=== PATIENT | female | born 1995 | race Caucasian/White ===

== ENCOUNTER 2024-02-28 13:54 | Inpatient (IN) ==
--- NOTE | 2024-02-28 14:31 | Emergency Department Note ---
Impression & Plan Hyperbilirubinemia, Elevated lipase, Nausea & vomiting ED Provider Note NAME: MANJULA BELLO AGE: 28 SEX: F : 1995 ARRIVES VIA: Walk-In INFORMANT: Patient, mother ED PROVIDER(S): Kirill Winter MD CHIEF COMPLAINT: Nausea vomiting MEDICAL DECISION MAKING: Patient presents due to concern for nausea vomiting and concern for jaundice. IV was established and blood work is obtained along with right upper quadrant ultrasound. Patient was ordered IV fluids and IV Zofran. The patient did have an acute hepatitis panel ordered as the patient does have a bilirubin of 6.7. White count of 12. Patient does have elevated lipase at 2300. Urinalysis shows possible infection and she is positive for nitrites and leuks but negative for whites and bacteria. No reported urinary symptoms will defer treatment at this time. Tylenol and alcohol are negative. Given the patient's hyperbilirubinemia I did add a direct bilirubin as well. This was 4.3. Right upper quadrant ultrasound does not show any evidence of acute cholecystitis. CBD is normal in size 0.4 cm. No evidence of cholecystitis. No intra or extrahepatic biliary ductal dilatation. Given these findings I did speak with the on-call call center consultant Dr. Kenyon who recommended an MRCP but does not recommend transfer at this time. He did recommend adding an GEGE. I did speak the on-call hospitalist Dr. Larry and the patient was admitted to the medicine service. Of note the patient was feeling as though his blood sugar was low was noted to be 60 and the patient was ordered half an amp of D50 which she received and a subsequent BSG was obtained. Repeat was 117. Discussion w/ other healthcare providers: Dr. Esquivel gastroenterology Dr. Larry inpatient medicine service Prior /Outside records reviewed: None Differential diagnosis: Biliary obstruction, hepatitis, gastroenteritis, food borne illness, infection, appendicitis, diverticulitis, inflammatory bowel disease, obstruction among others were considered. Diagnostics, as interpreted by me: ECG: None Cardiac monitoring: An order was placed for continuous cardiac monitoring. The monitor shows a rate of 98 with sinus rhythm. Patient was placed on pulse oximetry Medical decision rules: None Imaging studies: I informally interpreted the patient's right upper quadrant ultrasound does show gallstones with formal report to follow. HPI: Patient presents due to concern for nausea vomiting and concern for jaundice. The patient reports that she began vomiting Thursday and has not been able to keep anything down. The patient states that she was trying to push fluids but even after fluids amount of vomiting about 30 minutes later. Patient states that she did not eat anything today but did try to drink and vomited. Patient denies any significant abdominal pain but does complain of an overall discomfort. The patient states that she did have what she thought was epigastric discomfort and pain on and states that this is not necessarily atypical for her. 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 Patient states that she is a type I diabetic and does follow both with endocrine and nephrology for stage II chronic kidney disease. Patient states that she has seen all of these providers in the last several months and believes that she had an endoscopy this year that was unremarkable and that she gets them yearly for surveillance. Patient denies any alcohol use. The patient denies any recent travel or illness. The patient denies any diarrhea. The patient has not had a bowel movement since which is atypical for her. Patient states that she has been passing gas. Prior history of a but no other abdominal surgeries no prior history of bowel obstruction. PAST MEDICAL HISTORY: Type 1 diabetes, CKD stage II, Padilla's PAST SURGICAL HISTORY: Endoscopy SOCIAL HISTORY: Denies alcohol tobacco or drug use. Speaks [place]an. HOME MEDICATIONS: See Below ALLERGIES: See Below VITALS: See Below PHYSICAL EXAMINATION: GENERAL: NAD, non-toxic. EYE EXAM: Scleral icterus bilaterally. PERRL, no anisocoria and EOM's grossly intact w/o pain. OROPHARYNX: Moist mucus membranes, grossly normal dentition. NECK: Trachea midline, no stridor. Supple, no nuchal rigidity, no adenopathy, non-tender. No signs of meningismus. FROM of the neck with good chin to chest and neck extension. LUNGS: Clear to auscultation. Normal chest wall mechanics. HEART: NSR, no MRG. ABDOMEN: Abdomen soft, non-tender, no masses, no rebound or guarding. BACK: No CVA TTP. SKIN: No rashes and no bruising. UPPER EXTREMITIES: Upper extremities are grossly normal. LOWER EXTREMITIES: Grossly normal, no edema. NEURO EXAM: A&O x3, cranial nerves II-XII grossly intact, normal speech, moves all 4 extremities. Past Med/Surg History Problem List (Updated 02/28/24 @ 18:34 by Kirill Winter MD) Nausea & vomiting (Acute) Elevated lipase (Acute) Hyperbilirubinemia (Acute) Social History Smoking Status: Never smoker Preferred Language: [place]an Feels Safe at Home: Yes Allergies Allergies Allergy/AdvReac Type Severity Reaction Status Date / Time No Known Allergies Allergy Unverified 02/28/24 17:28 Home Meds Home Medications Medication Instructions Recorded Confirmed ascorbic acid (vitamin C) 1,000 mg 1 g PO DAILY 02/28/24 02/28/24 tablet (Vitamin C) cholecalciferol (vitamin D3) 25 50 mcg PO DAILY 02/28/24 02/28/24 mcg (1,000 unit) tablet (Vitamin D3) insulin aspart U-100 100 unit/mL 150 unit continuous subcutaneous 02/28/24 02/28/24 subcutaneous solution (Novolog infusion UD U-100 Insulin aspart) insulin glargine 100 unit/mL (3 30 unit subcut UD PRN PUMP FAILURE 02/28/24 02/28/24 mL) subcutaneous pen (Lantus Solostar U-100 Insulin) levothyroxine 112 mcg tablet See Rx Instructions .Route .COMPLEX 02/28/24 02/28/24 losartan 50 mg tablet 50 mg PO QAM 02/28/24 02/28/24 metformin 500 mg tablet,extended 1,000 mg PO QAM 02/28/24 02/28/24 release 24 hr omeprazole 40 mg capsule,delayed 40 mg PO DAILY 02/28/24 02/28/24 release semaglutide (weight loss) 2.4 2.4 mg subcut WK 02/28/24 02/28/24 mg/0.75 mL subcutaneous pen injector (Wegovy) Results & Data (ED) Vital Signs Vital Signs - 24 hr 02/28/24 13:55 02/28/24 13:57 02/28/24 15:38 Temperature 37.0 C Temperature Source Temporal Artery Scan Pulse Rate 101 H 89 Pulse Rate [Right Finger] 104 H Pulse Rhythm Regular Pulse Strength Normal Respiratory Rate 18 20 Respiratory Effort / Characteristics Non-Labored Spontaneous Non-Labored Spontaneous Respiratory Depth Normal Respiratory Pattern Regular Blood Pressure 141/87 H Blood Pressure [Left Arm] 141/85 H Blood Pressure Mean 105 Blood Pressure Mean [Left Arm] 103 Blood Pressure Position Sitting Blood Pressure Position [Left Arm] Lying Pulse Oximetry 100 97 Oxygen Delivery Method Room Air Room Air Sepsis Recent Fever Within 48 Hours No Sepsis New/Unexplained Change in Mental Status No Sepsis Action Taken by Nursing No Action Required 02/28/24 15:55 02/28/24 17:00 Temperature Temperature Source Pulse Rate Pulse Rate [Right Finger] 87 75 Pulse Rhythm Pulse Strength Respiratory Rate 18 18 Respiratory Effort / Characteristics Non-Labored Spontaneous Non-Labored Spontaneous Respiratory Depth Respiratory Pattern Blood Pressure Blood Pressure [Left Arm] 141/85 H 138/81 Blood Pressure Mean Blood Pressure Mean [Left Arm] 103 100 Blood Pressure Position Blood Pressure Position [Left Arm] Lying Lying Pulse Oximetry 99 98 Oxygen Delivery Method Room Air Room Air Sepsis Recent Fever Within 48 Hours Sepsis New/Unexplained Change in Mental Status Sepsis Action Taken by Snf Medications Current Medication List: was personally reviewed by me Laboratory Data Attestation: I reviewed the patient's lab results. 02/28/24 14:07 02/28/24 14:07 Lab Results 02/28/24 02/28/24 02/28/24 Range/Units 14:07 14:19 15:02 WBC 12.53 H (4.8-10.8) K/ul RBC 4.92 (4.20-5.40) M/uL Hgb 13.9 (12.0-16.0) g/dl Hct 42.8 (37.0-47.0) % MCV 87.0 (80.0-100.0) fL MCH 28.3 (25.0-34.0) pg MCHC 32.5 (32.0-36.0) g/dL RDW Std Deviation 41.8 (36.4-46.3) fL RDW Coeff of Omid 13.1 (11.5-14.5) % Plt Count 517 H (130-400) K/uL MPV 9.1 L (9.4-12.4) fL Immature Gran % (Auto) 0.3 % Neut % (Auto) 79.8 % Lymph % (Auto) 11.9 % Coffey % (Auto) 6.7 % Eos % (Auto) 0.9 % Baso % (Auto) 0.4 % Neut # (Auto) 10.00 H (1.40-6.50) K/uL Lymph # (Auto) 1.49 (1.20-3.40) K/uL Coffey # (Auto) 0.84 H (0.11-0.59) K/uL Eos # (Auto) 0.11 (0.00-0.50) K/uL Baso # (Auto) 0.05 (0.00-0.20) K/uL Immature Gran # (Auto) 0.04 (0.01-0.20) K/uL Sodium 136 (136-145) mmol/L Potassium 3.8 (3.5-5.1) mmol/L Chloride 96 L (98-107) mmol/L Carbon Dioxide 28 (21-32) mmol/L Anion Gap 12 H (3-11) BUN 18 (6-23) mg/dl Creatinine 1.10 (0.6-1.2) mg/dl Est Cr Clr Drug Dosing 78.9 ml/min Est GFR ( Amer) 79.1 ml/min Est GFR (Non-Af Amer) 68.3 ml/min BUN/Creatinine Ratio 16.4 (10-20) Glucose 133 H (70-99(Fasting)) mg/dl POC Glucose (70-99) mg/dl Calcium 9.9 (8.6-10.3) mg/dl Total Bilirubin 6.7 H (0.2-1.0) mg/dl Direct Bilirubin 4.3 H (0-0.2) mg/dl AST 141 H (13-39) U/L ALT 642 H (7-52) U/L Alkaline Phosphatase 275 H (34-104) U/L Total Protein 8.4 H (6.0-8.3) gm/dl Albumin 4.5 (3.4-5.0) gm/dl Globulin 3.9 (2.5-4.0) gm/dl Albumin/Globulin Ratio 1.2 (0.9-2) Lipase 2318 H (11-82) U/L HCG, Qual Negative (Negative) Urine Color Dark Yellow Urine Appearance Cloudy A (Clear) Urine pH 5.0 (4.5-7.5) Ur Specific [place] 1.027 (1.000-1.030) Urine Protein 1+ H (Negative) Urine Glucose (UA) Negative (Negative) Urine Ketones 1+ H (Negative) Urine Blood Negative (Negative) Urine Nitrite Positive A (Negative) Urine Bilirubin 3+ H (Negative) Urine Urobilinogen Negative (Negative) Ur Leukocyte Esterase 1+ H (Negative) Urine WBC (Auto) 0-5 (0-5) /hpf Urine RBC (Auto) 6-10 H (0-2) /hpf U Hyaline Cast (Auto) 6-10 H (0-2) /lpf U Epithel Cells (Auto) 6-10 H (0-2) /hpf Urine Bacteria (Auto) None Seen (None Seen) Acetaminophen < 3 L (10-30) ug/ml Ethyl Alcohol mg/dL < 10.0 (<10.0) mg/dl 02/28/24 02/28/24 Range/Units 16:31 17:05 WBC (4.8-10.8) K/ul RBC (4.20-5.40) M/uL Hgb (12.0-16.0) g/dl Hct (37.0-47.0) % MCV (80.0-100.0) fL MCH (25.0-34.0) pg MCHC (32.0-36.0) g/dL RDW Std Deviation (36.4-46.3) fL RDW Coeff of Omid (11.5-14.5) % Plt Count (130-400) K/uL MPV (9.4-12.4) fL Immature Gran % (Auto) % Neut % (Auto) % Lymph % (Auto) % Coffey % (Auto) % Eos % (Auto) % Baso % (Auto) % Neut # (Auto) (1.40-6.50) K/uL Lymph # (Auto) (1.20-3.40) K/uL Coffey # (Auto) (0.11-0.59) K/uL Eos # (Auto) (0.00-0.50) K/uL Baso # (Auto) (0.00-0.20) K/uL Immature Gran # (Auto) (0.01-0.20) K/uL Sodium (136-145) mmol/L Potassium (3.5-5.1) mmol/L Chloride (98-107) mmol/L Carbon Dioxide (21-32) mmol/L Anion Gap (3-11) BUN (6-23) mg/dl Creatinine (0.6-1.2) mg/dl Est Cr Clr Drug Dosing ml/min Est GFR ( Amer) ml/min Est GFR (Non-Af Amer) ml/min BUN/Creatinine Ratio (10-20) Glucose (70-99(Fasting)) mg/dl POC Glucose 62 L* 117 H (70-99) mg/dl Calcium (8.6-10.3) mg/dl Total Bilirubin (0.2-1.0) mg/dl Direct Bilirubin (0-0.2) mg/dl AST (13-39) U/L ALT (7-52) U/L Alkaline Phosphatase (34-104) U/L Total Protein (6.0-8.3) gm/dl Albumin (3.4-5.0) gm/dl Globulin (2.5-4.0) gm/dl Albumin/Globulin Ratio (0.9-2) Lipase (11-82) U/L HCG, Qual (Negative) Urine Color Urine Appearance (Clear) Urine pH (4.5-7.5) Ur Specific [place] (1.000-1.030) Urine Protein (Negative) Urine Glucose (UA) (Negative) Urine Ketones (Negative) Urine Blood (Negative) Urine Nitrite (Negative) Urine Bilirubin (Negative) Urine Urobilinogen (Negative) Ur Leukocyte Esterase (Negative) Urine WBC (Auto) (0-5) /hpf Urine RBC (Auto) (0-2) /hpf U Hyaline Cast (Auto) (0-2) /lpf U Epithel Cells (Auto) (0-2) /hpf Urine Bacteria (Auto) (None Seen) Acetaminophen (10-30) ug/ml Ethyl Alcohol mg/dL (<10.0) mg/dl Administered Medications Discontinued Medications Dextrose (Dextrose 50% 50 Ml Syringe) 25 ml IV NOW ONE Stop: 02/28/24 16:54 Last Admin: 02/28/24 16:56 Dose: 25 ml Documented By: CHERELLE Sodium Chloride (Nss) 1,000 mls @ 999 mls/hr IV .Q1H1M ONE Stop: 02/28/24 15:45 Last Infusion: 02/28/24 17:10 Dose: Infused Documented By: Admin: 02/28/24 14:56 Dose: 999 mls/hr Documented By: CHERELLE Ondansetron HCl (Ondansetron Inj 2 Mg/Ml 2 Ml Vial) 4 mg IV NOW STA Stop: 02/28/24 14:46 Last Admin: 02/28/24 14:52 Dose: 4 mg Documented By: CHERELLE Imaging Data Radiologist's Impression: Gallbladder Ultrasound 02/28/24 14:45 ULTRASOUND RIGHT UPPER QUADRANT ABDOMEN CLINICAL HISTORY: Vomiting. Elevated bilirubin. COMPARISON STUDY: Abdominal radiograph dated 02/25/2024 TECHNIQUE: Real-time, grayscale, and color flow sonography of the right upper quadrant of the abdomen was performed. Images are reviewed in the transverse and longitudinal planes. FINDINGS: Liver: The liver is normal in size and echotexture. There is no intrahepatic biliary ductal dilatation. The main portal vein is patent. Gallbladder: The gallbladder is mildly distended and contains layering gallstones. There is no significant gallbladder wall thickening or pericholecystic fluid. A sonographic Bravo's sign is reportedly absent. The common bile duct measures up to 0.4 cm in diameter. Pancreas: Visualized portions of the pancreatic head and body are normal in appearance. The splenic vein is patent. Right kidney: Survey images of the right kidney demonstrate normal size and echotexture. There is no hydronephrosis. Ascites: None. IMPRESSION: 1. Cholelithiasis without sonographic evidence of acute cholecystitis. If there is strong clinical concern for acute cholecystitis a nuclear hepatobiliary scan could be considered. 2. There is no intra or extrahepatic biliary ductal dilatation. ACT 112: Negative or not required by law. Electronically signed by: Shiva Gutierrez M.D. 02/28/2024 4:22 PM KUB X-Ray 02/28/24 14:49 KUB CLINICAL HISTORY: Constipation. FINDINGS: 2 AP supine abdominal radiographs are obtained. No prior studies are available for comparison at the time of dictation. There is a nonobstructed abdominal bowel gas pattern. Mild to moderate fecal retention is seen in the right colon. No evidence of intraperitoneal free air is identified on these supine images. There are no abnormal abdominal calcifications. The bony structures appear intact. IMPRESSION: No acute abnormality is identified. Electronically signed by: Shiva Gutierrez M.D. 02/28/2024 4:10 PM Discharge Plan Visit Data Chief Complaint: Illness Stated Complaint: JAUNDICED, VOMITING, NAUSEA, CONSTIPATION ED Provider: Kirill Winter Discharge Problem: Hyperbilirubinemia, Elevated lipase, Nausea & vomiting Forms Stand Alone Forms: My [facility] [place] [facility] Prescriptions Prescriptions: No Action losartan 50 mg tablet 50 mg PO QAM omeprazole 40 mg capsule,delayed release(DR/EC) 40 mg PO DAILY insulin aspart U-100 [Novolog U-100 Insulin aspart] 100 unit/mL solution 150 unit continuous subcutaneous infusion UD MDD 150 UNITS PER DAY Rx Instructions: VIA INSULIN PUMP metformin 500 mg tablet extended release 24 hr 1,000 mg PO QAM Wegovy 2.4 mg/0.75 mL pen injector 2.4 mg SUBCUT WK Rx Instructions: TAKE ON TUESDAYS insulin glargine [Lantus Solostar U-100 Insulin] 100 unit/mL (3 mL) insulin pen 30 unit SUBCUT UD PRN (Reason: PUMP FAILURE) Rx Instructions: INJECT 30 UNITS SUB-Q WITH BREAKFAST AND DINNER..USE IN CASE OF PUMP FAILURE..EACH PEN EXPIRES 28 DAYS AFTER USE levothyroxine 112 mcg tablet See Rx Instructions .ROUTE .COMPLEX Rx Instructions: TAKE 1 TABLET BY MOUTH 6 DAYS A WEEK AND 2 TABLETS ON DAY 7 ascorbic acid (vitamin C) [Vitamin C] 1,000 mg Tablet 1 g PO DAILY cholecalciferol (vitamin D3) [Vitamin D3] 25 mcg (1,000 unit) Tablet 50 mcg PO DAILY Referrals Referrals: PCP,NO [Physician] - Discharge Problem: Nausea & vomiting Qualifiers: Vomiting type: unspecified Qualified Code(s): R11.2 - Nausea with vomiting, unspecified
[2024-02-28 14:35] LABS: Basophils # (auto) 0.05 K/uL (0.00-0.20); Basophils % (auto) 0.4 %; Eosinophils # (auto) 0.11 K/uL (0.00-0.50); Eosinophils % (auto) 0.9 %; Hematocrit (blood only) 42.8 % (37.0-47.0); Hemoglobin 13.9 g/dl (12.0-16.0); Immature Granulocytes # (auto) 0.04 K/uL (0.01-0.20); Immature Granulocytes % (auto) 0.3 %; Lymphocytes # (auto) 1.49 K/uL (1.20-3.40); Lymphocytes % (auto) 11.9 %; Mean Corpuscular Hemoglobin 28.3 pg (25.0-34.0); Mean Corpuscular Hgb Conc 32.5 g/dL (32.0-36.0); Mean Platelet Volume 9.1 fL (9.4-12.4); Monocytes # (auto) 0.84 K/uL (0.11-0.59); Monocytes % (auto) 6.7 %; Neutrophils % (auto) 79.8 %; Platelet Count 517 K/uL (130-400); RDW Coefficient of Variation 13.1 % (11.5-14.5); RDW Standard Deviation 41.8 fL (36.4-46.3); Red Blood Count 4.92 M/uL (4.20-5.40); White Blood Count 12.53 K/ul (4.8-10.8)
[2024-02-28 14:38] LABS: BUN Creatinine Ratio 16.4 (10-20); Calcium 9.9 mg/dl (8.6-10.3); Creatinine Clr Calc Pharmacy 78.9 ml/min; Est GFR (African American) 79.1 ml/min; Est GFR (Non-African American) 68.3 ml/min; Potassium 3.8 mmol/L (3.5-5.1)
[2024-02-28 14:39] LABS: Albumin Globulin Ratio 1.2 (0.9-2); Albumin Level 4.5 gm/dl (3.4-5.0); Bilirubin,Total 6.7 mg/dl (0.2-1.0); Globulin 3.9 gm/dl (2.5-4.0); Total Protein 8.4 gm/dl (6.0-8.3)
[2024-02-28 14:46] LABS: Pregnancy Test, Serum Negative (Negative)
[2024-02-28 14:48] LABS: Appearance Urine Cloudy (Clear); Bacteria Urine Automated None Seen (None Seen); Bilirubin Urine 3+ (Negative); Blood Urine Negative (Negative); Color Urine Dark Yellow; Glucose Urine UA Negative (Negative); Ketones Urine 1+ (Negative); Leukocyte Esterase Urine 1+ (Negative); Nitrite Urine Positive (Negative); Protein Urine 1+ (Negative); Specific Gravity Urine 1.027 (1.000-1.030); Urobilinogen Urine Negative (Negative); WBC Urine Automated 0-5 /hpf (0-5)
[2024-02-28] MEDS: ONDANSETRON INJ 2 MG/ML 2 ML VIAL IV STA (14:52)
[2024-02-28] MEDS: SODIUM CHLORIDE 0.9% 1,000 ML IV ONE (14:56)
[2024-02-28 15:32] LABS: Bilirubin Direct 4.3 mg/dl (0-0.2)
--- NOTE | 2024-02-28 16:12 | XRay Report ---
KUB CLINICAL HISTORY: Constipation. FINDINGS: 2 AP supine abdominal radiographs are obtained. No prior studies are available for comparis on at the time of dictation. There is a nonobstructed abdominal bowel gas pattern. Mild to moderate f ecal retention is seen in the right colon. No evidence of intraperitoneal free air is identified on t hese supine images. There are no abnormal abdominal calcifications. The bony structures appear intact . IMPRESSION: No acute abnormality is identified. Electronically signed by: Shiva Gutierrez M.D. 02/28/2024 4:10 PM
--- NOTE | 2024-02-28 16:23 | Ultrasound Report ---
ULTRASOUND RIGHT UPPER QUADRANT ABDOMEN CLINICAL HISTORY: Vomiting. Elevated bilirubin. COMPARISON STUDY: Abdominal radiograph dated 02/25/2024 TECHNIQUE: Real-time, grayscale, and color flow sonography of the right upper quadrant of the abdomen was performed. Images are reviewed in the transverse and longitudinal planes. FINDINGS: Liver: The liver is normal in size and echotexture. There is no intrahepatic biliary ductal dilatatio n. The main portal vein is patent. Gallbladder: The gallbladder is mildly distended and contains layering gallstones. There is no signif icant gallbladder wall thickening or pericholecystic fluid. A sonographic Bravo's sign is reportedly absent. The common bile duct measures up to 0.4 cm in diameter. Pancreas: Visualized portions of the pancreatic head and body are normal in appearance. The splenic v ein is patent. Right kidney: Survey images of the right kidney demonstrate normal size and echotexture. There is no hydronephrosis. Ascites: None. IMPRESSION: 1. Cholelithiasis without sonographic evidence of acute cholecystitis. If there is strong clinical co ncern for acute cholecystitis a nuclear hepatobiliary scan could be considered. 2. There is no intra or extrahepatic biliary ductal dilatation. ACT 112: Negative or not required by law. Electronically signed by: Shiva Gutierrez M.D. 02/28/2024 4:22 PM
[2024-02-28] MEDS: DEXTROSE 50% 50 ML SYRINGE IV ONE (16:56)
--- NOTE | 2024-02-28 18:27 | History & Physical Report ---
Date of Service February 28, 2024 Assessment & Plan (1) Hyperbilirubinemia: Plan: Suspected choledocholithiasis with passed stone Patient 3 weeks ago had some epigastric discomfort and light/K colored diarrhea which resolved. Subsequently with white/stefania colored stools with her last bowel movement, and then progressive nausea/vomiting and anorexia in the last 3 days Nausea/bloody nonbloody significantly worsened with attempted meals over the last 3 days Bilirubin 4.3, AST 141, ALT 642, lipase 2318 suggestive of obstructive biliary disease Gallbladder ultrasound with cholelithiasis, no evidence of acute cholecystitis, no intra or extrahepatic ductal dilation MRCP 1. Cholelithiasis without MRI evidence of acute cholecystitis. 2. Otherwise normal MRCP. There is no clear evidence of choledocholithiasis. Patient reports her pain actually improved earlier today after worsening this morning, she currently reports that she feels the best she has in several days and has a little of an appetite back. ?passed stone GI consulted. Recommended MRCP, GEGE, hepatitis panel in addition to above which are ordered and pending Surgery consulted - CMP daily No fever, no chills, no signs of acute cholecystitis on imaging, no left shift. Antibiotics deferred (2) Nausea & vomiting: Plan: - Zofran, D5LR IVFM (3) Type 1 diabetes mellitus: Plan: Longstanding history of type I DM which patient manages with a insulin pump and CGM Basal rate 2 units/h, CF 1-20, ratio 1:8 Patient strongly prefers to use her own pump as able. Will add BSG checks AC/at bedtime or every 4 hours while NPO and allow her to continue her room pump for now. Will transition if she is scheduled for surgery. If she has hypoglycemic or hyperglycemic episodes she is agreeable to switching to pharmacy controlled basal bolus. (4) BMI 38.0-38.9,adult: Plan: Wegovy held Plan DVT prophylaxis: Pharmacoprophylaxis held pending surgical evaluation, SCDs Diet: Clears until midnight, n.p.o. at midnight CODE STATUS: Full code Disposition: Medical surgical History of Present Illness Primary Care Provider: Chucho Patel DO Dg is a 28-year-old female with a past medical history of type 1 diabetes mellitus on insulin pump, hypothyroidism on Synthroid, hypertension on losartan, and BMI 38.5 on Wegovy who presents with a bilirubin of 6.7, obstructive appearing transaminitis, and abdominal discomfort concerning for choledocholithiasis. Patient presented with nausea/vomiting and jaundice KUB is without acute abnormality Right upper quadrant ultrasound shows cholelithiasis without evidence of acute cholecystitis. No intra or extrahepatic biliary ductal dilation was seen. Case was reviewed with the ER and GI who recommended medicine evaluation and MRCP. MRCP was obtained prior to admission and showed []. Thursday epigastric pain started on her way to work. Went to work, took a pepcid. Has a history of Baretts and GERD which felt similar Threw up, and with prior GI history usually feels better after vomiting but did not feel better this time Tried to eat later in the afternoon and had turkey and cheese, kept it down for an hour then pain dramatically worsened. +emesis again. No blood/melena. Continued to have pain throughout the evening and receeded to a strong discomfort but 'not unbearable pain, was tolerable.' Triedto eat dinner but couldnt and threw up. Didn't eat all day thursday, and then tried to have zuly eapple and again got nauseus, pain returned, and vomited an hour later again. Also had some pain in both sides yesterday evening. Pain in his low mid sternum and epigastrum. THis morning tried fluids but pain returned and after drinking just 12oz of liquids felt sick again and camr to the ER. NO bowel movements since last , normally has daily BM. Has not been eating in the last few days. BMs right before her symptoms started were white and stefania colored which is not normal for her. 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 Was put on immodium and sx resolved until her recent episode. No fevers, chills. Did have some sweats when her BSG dropped, is a T1 diabetic. Novolog insulin pump normally. Basal rate 2u/hour, CF 1:20, Ratio 1:8. PT strongly prefers to use her own pump if able. Is prescribed lantus as a backup but has not needed to use this and has not taken it. Patient has been on Wegovy for a little over 1 year. Seems to help her sugars a lot and feels she has had great success with this, and has not had side effects with this. No dysuria. Medical History: Reviewed Medications: Reviewed Surgical History: Reviewed Family history: Reviewed Allergies: Reviewed, NKDA Social History: REviewed. No tobacco/ETOH use. Code Status: Full Allergies Allergy/AdvReac Type Severity Reaction Status Date / Time ibuprofen [From Motrin] Allergy rash Verified 02/28/24 18:33 Home Medications Medication Instructions Recorded Confirmed Type ascorbic acid (vitamin C) 1,000 mg 1 g PO DAILY 02/28/24 02/28/24 History tablet (Vitamin C) cholecalciferol (vitamin D3) 25 50 mcg PO DAILY 02/28/24 02/28/24 History mcg (1,000 unit) tablet (Vitamin D3) insulin aspart U-100 100 unit/mL 150 unit continuous subcutaneous 02/28/24 02/28/24 History subcutaneous solution (Novolog infusion UD U-100 Insulin aspart) insulin glargine 100 unit/mL (3 30 unit subcut UD PRN PUMP FAILURE 02/28/24 02/28/24 History mL) subcutaneous pen (Lantus Solostar U-100 Insulin) levothyroxine 112 mcg tablet See Rx Instructions .Route .COMPLEX 02/28/24 02/28/24 History losartan 50 mg tablet 50 mg PO QAM 02/28/24 02/28/24 History metformin 500 mg tablet,extended 1,000 mg PO QAM 02/28/24 02/28/24 History release 24 hr omeprazole 40 mg capsule,delayed 40 mg PO DAILY 02/28/24 02/28/24 History release semaglutide (weight loss) 2.4 2.4 mg subcut WK 02/28/24 02/28/24 History mg/0.75 mL subcutaneous pen injector (Wegovy) Past Med/Surg History Problem List BMI 38.0-38.9,adult Type 1 diabetes mellitus Nausea & vomiting (Acute) Elevated lipase (Acute) Hyperbilirubinemia (Acute) Social History Smoking Status: Never smoker Preferred Language: Lithuanian Feels Safe at Home: Yes Physical Exam Physical Exam: General: A&Ox3. NAD. Cooperative. HEENT: Atraumatic, normocephalic. Pulm: CTAB A&P. -wheezes, -rales, -rhonchi. Symmetrical chest rise. No increased work of breathing. No respiratory distress. Cardiac: RRR, -mrg. Radial pulses intact and symmetrical. Abdominal: Mild nausea with epigastric palpation otherwise nontender, nondistended, soft. BS present. Results & Data Results & Data Vital Signs (Past 12 Hours) Vital Signs Temp Pulse Pulse Resp BP BP Pulse Ox 02/28/24 17:00 75 18 138/81 98 02/28/24 15:55 87 18 141/85 H 99 02/28/24 15:38 89 02/28/24 13:57 37.0 C 101 H 20 141/87 H 97 02/28/24 13:55 104 H 18 141/85 H 100 O2 Del Method 02/28/24 17:00 Room Air 02/28/24 15:55 Room Air 02/28/24 15:38 02/28/24 13:57 Room Air 02/28/24 13:55 Room Air PG Care Time/CCT Total # of Minutes Spent Total Time Spent with Patient: Total time spent is greater than 50% in coordination of care (as documented) at patient's floor/unit and/or counseling patient: Coding Level of Care Code 68878 INT INP/OBS CARE 3/75MIN Diagnoses Hyperbilirubinemia E80.6 Nausea & vomiting R11.2 Vomiting type: unspecified Type 1 diabetes mellitus E10.9 BMI 38.0-38.9,adult Z68.38 (2) Nausea & vomiting Vomiting type: unspecified Qualified Code(s): R11.2 - Nausea with vomiting, unspecified
[2024-02-28] MEDS: D5W AND LACTATED RINGERS 1,000 ML IV SCH (18:39)
[2024-02-28] MEDS ORDERED: MoRPHine SULFATE 2 MG/ML CARP IV PRN (19:09)
[2024-02-28] MEDS ORDERED: ACETAMINOPHEN 325 MG TAB PO PRN (19:09)
[2024-02-28] MEDS ORDERED: GLUCOSE 40% GEL 15 GM TUBE PO PRN (19:10)
[2024-02-28] MEDS ORDERED: GLUCOSE 10 TAB/TUBE PO PRN (19:10)
[2024-02-28] MEDS ORDERED: GLUCAGON FOR INJ 1 MG VIAL SQ PRN (19:10)
--- NOTE | 2024-02-28 19:25 | Magnetic Resonance Report ---
MRCP CLINICAL HISTORY: Vomiting. Elevated bilirubin. Jaundice. Cholelithiasis. COMPARISON STUDY: Abdominal radiographs and ultrasound performed earlier the same day 02/28/2024. TECHNIQUE: Abdominal MRCP was performed utilizing various T2-weighted sequences in the axial and caro nal planes. IV contrast was not administered for this examination. 3-D reformats were created and ass essed. Diffusion-weighted imaging was utilized. FINDINGS: The gallbladder is mildly distended and contains numerous small gallstones. There is no MRI evidence of acute cholecystitis. There is no intra or extrahepatic biliary ductal dilatation. The common bile duct measures up to 3 mm in diameter. No intraluminal filling defects are seen to indicate choledocho lithiasis. The pancreatic duct is normal in caliber. The unenhanced liver, spleen, pancreas, adrenal glands, and kidneys are grossly unremarkable. The abd ominal aorta is normal in course and caliber. No bowel obstruction is seen. There is no abdominal asc ites. No pleural effusion is identified. IMPRESSION: 1. Cholelithiasis without MRI evidence of acute cholecystitis. 2. Otherwise normal MRCP. There is no clear evidence of choledocholithiasis. Dictated: 02/28/2024 5:52 PM Transcribed: 02/28/2024 7:13 PM Leonarda [id number] ANDREIA_Fady [id number] Electronically signed by: Shiva Gutierrez M.D. 02/28/2024 7:23 PM
--- NOTE | 2024-02-28 19:27 | Surgery Consultation ---
<Statement entered by Jamal Masterson DO - 02/29/24 10:14> This case was discussed with the surgical PA and I agree with this plan Date of Consultation February 28, 2024 Assessment & Plan (1) Hyperbilirubinemia: Patient seen and evaluated in the ED, states her symptoms have resolved at this time. However she was found to have elvated Tbili of 6.7. She underwent MRCP to r/o choledocholithiasis which was found to be negative at this time. Recommend repeat LFTs in the morning to further evaluate. Patient may have clears and NPO at midnight Recommend IV anabiotic coverage Will plan for surgical intervention 02/28 for cholecystectomy. History of Present Illness Reason for Consultation: acute cholecystitis History of Present Illness Patient is a 28-year-old female who presented to the ED with concerns for ongoing nausea, vomiting and jaundice. Patient states that her symptoms started this past Thursday and since then have been persistent. Patient states that she has not been able to keep any food/liquids down since Thursday. She also complains of worsening epigastric abdominal pain that started last evening and states the pain does radiate into her right shoulder/flank region. 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 Patient states since receiving medication at the ED her symptoms have resolved. Upon workup she was found to have elevated WBC at 12.5 and elevated LFTs including a Tbili of 6.7. Imaging was consistent with cholelithiasis. Patient does have a surgical history of x1 in the past. She otherwise denies any CP, SOB, changes in urinary habits, fevers or chills. Allergies Allergy/AdvReac Type Severity Reaction Status Date / Time ibuprofen [From Motrin] Allergy rash Verified 02/28/24 18:33 Home Medications Medication Instructions Recorded Confirmed Type ascorbic acid (vitamin C) 1,000 mg 1 g PO DAILY 02/28/24 02/28/24 History tablet (Vitamin C) cholecalciferol (vitamin D3) 25 50 mcg PO DAILY 02/28/24 02/28/24 History mcg (1,000 unit) tablet (Vitamin D3) insulin aspart U-100 100 unit/mL 150 unit continuous subcutaneous 02/28/24 02/28/24 History subcutaneous solution (Novolog infusion UD U-100 Insulin aspart) insulin glargine 100 unit/mL (3 30 unit subcut UD PRN PUMP FAILURE 02/28/24 02/28/24 History mL) subcutaneous pen (Lantus Solostar U-100 Insulin) levothyroxine 112 mcg tablet See Rx Instructions .Route .COMPLEX 02/28/24 02/28/24 History losartan 50 mg tablet 50 mg PO QAM 02/28/24 02/28/24 History metformin 500 mg tablet,extended 1,000 mg PO QAM 02/28/24 02/28/24 History release 24 hr omeprazole 40 mg capsule,delayed 40 mg PO DAILY 02/28/24 02/28/24 History release semaglutide (weight loss) 2.4 2.4 mg subcut WK 02/28/24 02/28/24 History mg/0.75 mL subcutaneous pen injector (Wegovy) Patient History Social History Smoking Status: Never smoker Preferred Language: Syriac Feels Safe at Home: Yes Review of Systems Review of Systems: All systems reviewed & are unremarkable except as noted in HPI & below Physical Exam Constitutional: well developed; no acute distress Respiratory: normal respiratory effort, lungs clear to auscultation Cardiovascular: RRR, no murmur, no edema Gastrointestinal (Abdomen): Abdomen soft, nontender, -Bravo's sign. No rebound, rebound, or peritonitis Skin: no rashes, warm and dry Results & Data Vital Signs (Past 12 Hours) Vital Signs Temp Pulse Pulse Resp BP BP Pulse Ox 02/28/24 17:00 75 18 138/81 98 02/28/24 15:55 87 18 141/85 H 99 02/28/24 15:38 89 02/28/24 13:57 37.0 C 101 H 20 141/87 H 97 02/28/24 13:55 104 H 18 141/85 H 100 O2 Del Method 02/28/24 17:00 Room Air 02/28/24 15:55 Room Air 02/28/24 15:38 02/28/24 13:57 Room Air 02/28/24 13:55 Room Air Diagnostic Findings ULTRASOUND RIGHT UPPER QUADRANT ABDOMEN CLINICAL HISTORY: Vomiting. Elevated bilirubin. COMPARISON STUDY: Abdominal radiograph dated 02/25/2024 TECHNIQUE: Real-time, grayscale, and color flow sonography of the right upper quadrant of the abdomen was performed. Images are reviewed in the transverse and longitudinal planes. FINDINGS: Liver: The liver is normal in size and echotexture. There is no intrahepatic biliary ductal dilatation. The main portal vein is patent. Gallbladder: The gallbladder is mildly distended and contains layering gallstones. There is no significant gallbladder wall thickening or pericholecystic fluid. A sonographic Bravo's sign is reportedly absent. The common bile duct measures up to 0.4 cm in diameter. Pancreas: Visualized portions of the pancreatic head and body are normal in appearance. The splenic vein is patent. Right kidney: Survey images of the right kidney demonstrate normal size and echotexture. There is no hydronephrosis. Ascites: None. IMPRESSION: 1. Cholelithiasis without sonographic evidence of acute cholecystitis. If there is strong clinical concern for acute cholecystitis a nuclear hepatobiliary scan could be considered. 2. There is no intra or extrahepatic biliary ductal dilatation. MRCP CLINICAL HISTORY: Vomiting. Elevated bilirubin. Jaundice. Cholelithiasis. COMPARISON STUDY: Abdominal radiographs and ultrasound performed earlier the same day 02/28/2024. TECHNIQUE: Abdominal MRCP was performed utilizing various T2-weighted sequences in the axial and coronal planes. IV contrast was not administered for this examination. 3-D reformats were created and assessed. Diffusion-weighted imaging was utilized. FINDINGS: The gallbladder is mildly distended and contains numerous small gallstones. There is no MRI evidence of acute cholecystitis. There is no intra or extrahepatic biliary ductal dilatation. The common bile duct measures up to 3 mm in diameter. No intraluminal filling defects are seen to indicate choledocholithiasis. The pancreatic duct is normal in caliber. The unenhanced liver, spleen, pancreas, adrenal glands, and kidneys are grossly unremarkable. The abdominal aorta is normal in course and caliber. No bowel obstruction is seen. There is no abdominal ascites. No pleural effusion is identified. IMPRESSION: 1. Cholelithiasis without MRI evidence of acute cholecystitis. 2. Otherwise normal MRCP. There is no clear evidence of choledocholithiasis. Dictated: 02/28/2024 5:52 PM Transcribed: 02/28/2024 7:13 PM Leonarda [id number] ANDREIA_Fady [id number] PG Care Time/CCT Total # of Minutes Spent Total Time Spent with Patient: Total time spent is greater than 50% in coordination of care (as documented) at patient's floor/unit and/or counseling patient: Coding Level of Care Code 85797 IN/OBS CONSULT LVL 5,80M Diagnoses Hyperbilirubinemia E80.6
[2024-02-28] MEDS: 4.5GM X1 IV STA (21:52)
--- NOTE | 2024-02-28 22:35 | Gastrointestinal Consultation ---
Date of Consultation February 28, 2024 Assessment & Plan (1) Abnormal LFTs: The patient has abnormal LFTs we do not have any old records to compare but I suspect she has an underlying steatohepatitis also the patient has an acute episode of nausea vomiting accompanied by elevation of the bilirubin she had an MRCP which did not show any choledocholithiasis of note the unenhanced imaged also did not show any pancreatitis per se although she has a markedly elevated lipase her Tylenol negative was negative level was negative as was her alcohol level The etiology of the abnormal LFTs is uncertain she could have sphincter of Oddi dysfunction which could be causing these problems as she believes been having recurrent episodes of abdominal pain for the last year. It is unlikely that she had a stone as the MRCP showed the CBD to be 3 mm and there were no choledocholithiasis At present I would 1. Follow trend and follow LFTs 2. Check for acute hepatitis panel 3. Check for GEGE and anti-smooth muscle antibody 4. Check INR 5. IV fluids 6. Depending upon results may need sphincter of Oddi manometry in the future Thank you for allowing us to take part in the care of your patient we will continue to follow her with you History of Present Illness Reason for Consultation: Abnormal LFTs Requesting Physician: Rob Esquivel Attending Physician: Beverley Zmaan MD History of Present Illness A very pleasant 28-year-old female with a past medical history significant for t ype I diabetes mellitus on insulin pump, hypothyroidism on Synthroid, hypertension on losartan, and BMI 38.5 on Wegov. 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 but that there is treatment that was offered did not alleviate the symptoms approximately 4 on Fridays she states the pain got a lot worse and the pain continued instead of swelling lasting for a few hours it and intensified in severity then decreased and today she noticed that her eyes were turning yellow in light of that fact he decided to come to the hospital currently she states that the abdominal pain has more almost resolved she denies any dysphagia she has a reflux she states she has been having a lot of nausea and vomiting over these last 3 days but currently is feeling better the abdominal pain as mentioned is currently abated but had been constant for the last few days she previously had episodes of diarrhea but for the last 3 days she has not had any bowel movements but she has not been eating also she denies taking Tylenol or alcohol she also denies taking any nonsteroidals Allergies Allergy/AdvReac Type Severity Reaction Status Date / Time ibuprofen [From Motrin] Allergy rash Verified 02/28/24 18:33 Home Medications Medication Instructions Recorded Confirmed Type ascorbic acid (vitamin C) 1,000 mg 1 g PO DAILY 02/28/24 02/28/24 History tablet (Vitamin C) cholecalciferol (vitamin D3) 25 50 mcg PO DAILY 02/28/24 02/28/24 History mcg (1,000 unit) tablet (Vitamin D3) insulin aspart U-100 100 unit/mL 150 unit continuous subcutaneous 02/28/24 02/28/24 History subcutaneous solution (Novolog infusion UD U-100 Insulin aspart) insulin glargine 100 unit/mL (3 30 unit subcut UD PRN PUMP FAILURE 02/28/24 02/28/24 History mL) subcutaneous pen (Lantus Solostar U-100 Insulin) levothyroxine 112 mcg tablet See Rx Instructions .Route .COMPLEX 02/28/24 02/28/24 History losartan 50 mg tablet 50 mg PO QAM 02/28/24 02/28/24 History metformin 500 mg tablet,extended 1,000 mg PO QAM 02/28/24 02/28/24 History release 24 hr omeprazole 40 mg capsule,delayed 40 mg PO DAILY 02/28/24 02/28/24 History release semaglutide (weight loss) 2.4 2.4 mg subcut WK 02/28/24 02/28/24 History mg/0.75 mL subcutaneous pen injector (Wegovy) Patient History Social History Smoking Status: Never smoker Hx Alcohol Use: No Hx Substance Use: No Preferred Language: Divehi Communication Ability: Effective Wick Tender Required: No Beliefs That Will Affect Care: None Current Living Situation: Spouse Other Information That Helps Us Care for You: No Feels Safe at Home: Yes Safety Concerns: Feels Safe At This Time Assistive Devices: None Review of Systems Review of Systems: A 10 point review of systems was done Physical Exam Constitutional: Young female who appears comfortable Eyes: Mildly jaundiced Cardiovascular: S1 and S2 Gastrointestinal (Abdomen): Soft no tenderness or masses appreciated Results & Data Vital Signs (Past 12 Hours) Vital Signs Temp Pulse Pulse Resp BP BP Pulse Ox 02/28/24 20:22 76 19 122/64 100 02/28/24 19:38 77 18 122/64 100 02/28/24 17:00 75 18 138/81 98 02/28/24 15:55 87 18 141/85 H 99 02/28/24 15:38 89 02/28/24 13:57 37.0 C 101 H 20 141/87 H 97 02/28/24 13:55 104 H 18 141/85 H 100 O2 Del Method 02/28/24 20:22 Room Air 02/28/24 19:38 Room Air 02/28/24 17:00 Room Air 02/28/24 15:55 Room Air 02/28/24 15:38 02/28/24 13:57 Room Air 02/28/24 13:55 Room Air PG Care Time/CCT Total # of Minutes Spent Total Time Spent with Patient: Total time spent is greater than 50% in coordination of care (as documented) at patient's floor/unit and/or counseling patient: Coding Level of Care Code 80790 IN/OBS CONSULT LVL 2,35M Diagnoses Abnormal LFTs R79.89
[2024-02-28] MEDS ORDERED: POLYETHYLENE (MIRALAX) 17 GM PACK PO PRN (23:26)
[2024-02-29] MEDS: DEXTROSE 50% 50 ML SYRINGE IV PRN (03:02)
[2024-02-29] MEDS: PIPERACILLIN/TAZOBACTAM 4.5 GM/100 ML BAG IV SCH (03:10)
[2024-02-29] MEDS: LEVOTHYROXINE SODIUM 112 MCG TABLET PO SCH (06:19)
[2024-02-29 08:39] LABS: Basophils # (auto) 0.04 K/uL (0.00-0.20); Basophils % (auto) 0.5 %; Eosinophils # (auto) 0.28 K/uL (0.00-0.50); Eosinophils % (auto) 3.7 %; Hematocrit (blood only) 34.8 % (37.0-47.0); Hemoglobin 11.6 g/dl (12.0-16.0); Immature Granulocytes # (auto) 0.03 K/uL (0.01-0.20); Immature Granulocytes % (auto) 0.4 %; Lymphocytes # (auto) 1.85 K/uL (1.20-3.40); Lymphocytes % (auto) 24.4 %; Mean Corpuscular Hemoglobin 28.5 pg (25.0-34.0); Mean Corpuscular Hgb Conc 33.3 g/dL (32.0-36.0); Mean Corpuscular Volume 85.5 fL (80.0-100.0); Mean Platelet Volume 9.3 fL (9.4-12.4); Monocytes # (auto) 0.75 K/uL (0.11-0.59); Monocytes % (auto) 9.9 %; Neutrophils # (auto) 4.63 K/uL (1.40-6.50); Neutrophils % (auto) 61.1 %; Platelet Count 427 K/uL (130-400); RDW Standard Deviation 41.1 fL (36.4-46.3); Red Blood Count 4.07 M/uL (4.20-5.40); White Blood Count 7.58 K/ul (4.8-10.8)
[2024-02-29 09:00] LABS: Partial Thromboplastin Time 28 Seconds (21-31)
[2024-02-29] MEDS: PANTOprazole 40 MG TAB PO SCH (09:22)
[2024-02-29 10:26] LABS: Albumin Globulin Ratio 1.1 (0.9-2); Albumin Level 3.5 gm/dl (3.4-5.0); Bilirubin,Total 2.1 mg/dl (0.2-1.0); Calcium 8.9 mg/dl (8.6-10.3); Creatinine Clr Calc Pharmacy 104.6 ml/min; Est GFR (African American) 111.2 ml/min; Globulin 3.1 gm/dl (2.5-4.0); Potassium 3.7 mmol/L (3.5-5.1); Total Protein 6.6 gm/dl (6.0-8.3)
[2024-02-29 10:58] LABS: Hep B Surface Ag with confirm Negative (Negative)
[2024-02-29 11:02] LABS: Hep C Ab Rflx HepCQuant RNA Negative (Negative)
[2024-02-29] MEDS ORDERED: CARBOHYDRATES FOR HYPOGLYCEMIA PO PRN (11:10)
[2024-02-29] MEDS ORDERED: GLUCOSE 10 TAB/TUBE PO PRN (11:10)
[2024-02-29] MEDS ORDERED: DEXTROSE 50% 50 ML SYRINGE IV PRN (11:10)
[2024-02-29] MEDS ORDERED: GLUCAGON FOR INJ 1 MG VIAL SQ PRN (11:10)
[2024-02-29] MEDS ORDERED: GLUCOSE 40% GEL 15 GM TUBE PO PRN (11:10)
--- NOTE | 2024-02-29 11:28 | Gastroenterology Progress Note ---
Date of Service February 29, 2024 Assessment & Plan (1) Abnormal LFTs: Plan: 28 year old female with recurrent episodes of abd pain, nausea/vomiting admitted w/ gallstones on imaging, elevated lipase and transaminases. MRCP w/o biliary dilation or apparent CBD stone. Given the improvement overnight of her lipase and transaminases, suspected she passed a CBD stone. Appreciate general surgery recommendation regarding timing of CCY. May consider IOC. If there is concern for a stone recommend transfer to a center with biliary capabilities. Otherwise, conservative measures. Trend LFTs. Follow liver serology. Maintain NPO status w/ IV fluid replacement. I spent a total of 45 minutes on the date of service in review of patient's record, and previously obtained information in person and appropriate medical visit, discussion and education of plan, with patient and/or caregiver, placing orders for tests/referral/procedures as medically necessary and documentation of pertinent clinical information in patient's medical records for their visit today. Admission and Anticipated Discharge Date Admission Date: February 28, 2024 Supervising Physician Co-Signing Physician Notes I examined the patient and reviewed patient's chart , laboratory data and imaging studies. I agree with with assessment and plan of care as suggested by advanced practice provider. Cholecystectomy planned for tomorrow. Likely passed common bile duct stone. MRCP shows no evidence of choledocholithiasis Subjective Pt was seen and evaluated, chart reviewed. Feeling well. Abd pain, nausea/vomiting resolved. She notes she has had previous bouts of identical pain occurring for months. However, this bout was more severe, did not resolve and was associated with jaundice, stefania colored stools. WBC improving LFTs downtrending Lipase downtrending MRCP without CBD stone Review of Systems Review of Systems: All other findings negative except as noted in HPI. Physical Exam Constitutional: WD/WN, vitals as above Respiratory: normal respiratory effort, lungs clear to auscultation Cardiovascular: RRR, no murmur, no edema Gastrointestinal (Abdomen): normal bowel sounds, soft, nontender, no hepatosplenomegaly Skin: no rashes, warm and dry Results & Data Results & Data Vital Signs (Past 12 Hours) Vital Signs Temp Pulse Pulse Resp BP BP Pulse Ox 02/29/24 07:14 36.7 C 71 14 115/75 100 02/28/24 23:26 36.6 C 71 130/80 97 O2 Del Method 02/29/24 07:14 Room Air 02/28/24 23:26 Room Air Laboratory Results 02/29/24 02/29/24 02/29/24 Range/Units 08:18 06:17 03:22 WBC 7.58 (4.8-10.8) K/ul RBC 4.07 L (4.20-5.40) M/uL Hgb 11.6 L (12.0-16.0) g/dl Hct 34.8 L (37.0-47.0) % MCV 85.5 (80.0-100.0) fL MCH 28.5 (25.0-34.0) pg MCHC 33.3 (32.0-36.0) g/dL RDW Std Deviation 41.1 (36.4-46.3) fL RDW Coeff of Omid 13.0 (11.5-14.5) % Plt Count 427 H (130-400) K/uL MPV 9.3 L (9.4-12.4) fL Immature Gran % (Auto) 0.4 % Neut % (Auto) 61.1 % Lymph % (Auto) 24.4 % Whitley % (Auto) 9.9 % Eos % (Auto) 3.7 % Baso % (Auto) 0.5 % Neut # (Auto) 4.63 (1.40-6.50) K/uL Lymph # (Auto) 1.85 (1.20-3.40) K/uL Whitley # (Auto) 0.75 H (0.11-0.59) K/uL Eos # (Auto) 0.28 (0.00-0.50) K/uL Baso # (Auto) 0.04 (0.00-0.20) K/uL Immature Gran # (Auto) 0.03 (0.01-0.20) K/uL PT 11.0 (9.0-12.0) Seconds INR 1.0 (0.9-1.1) APTT 28 (21-31) Seconds PTT Ratio 1.0 Sodium 136 (136-145) mmol/L Potassium 3.7 (3.5-5.1) mmol/L Chloride 103 (98-107) mmol/L Carbon Dioxide 27 (21-32) mmol/L Anion Gap 6 (3-11) BUN 10 (6-23) mg/dl Creatinine 0.83 (0.6-1.2) mg/dl Est Cr Clr Drug Dosing 104.6 ml/min Est GFR ( Amer) 111.2 ml/min Est GFR (Non-Af Amer) 96.0 ml/min BUN/Creatinine Ratio 12.0 (10-20) Glucose 110 H (70-99(Fasting)) mg/dl POC Glucose 97 115 H (70-99) mg/dl Calcium 8.9 (8.6-10.3) mg/dl Total Bilirubin 2.1 H D (0.2-1.0) mg/dl Direct Bilirubin (0-0.2) mg/dl AST 50 H (13-39) U/L ALT 368 H (7-52) U/L Alkaline Phosphatase 195 H (34-104) U/L Total Protein 6.6 D (6.0-8.3) gm/dl Albumin 3.5 (3.4-5.0) gm/dl Globulin 3.1 (2.5-4.0) gm/dl Albumin/Globulin Ratio 1.1 (0.9-2) Lipase 146 H (11-82) U/L HCG, Qual (Negative) Urine Color Urine Appearance (Clear) Urine pH (4.5-7.5) Ur Specific [place] (1.000-1.030) Urine Protein (Negative) Urine Glucose (UA) (Negative) Urine Ketones (Negative) Urine Blood (Negative) Urine Nitrite (Negative) Urine Bilirubin (Negative) Urine Urobilinogen (Negative) Ur Leukocyte Esterase (Negative) Urine WBC (Auto) (0-5) /hpf Urine RBC (Auto) (0-2) /hpf U Hyaline Cast (Auto) (0-2) /lpf U Epithel Cells (Auto) (0-2) /hpf Urine Bacteria (Auto) (None Seen) Acetaminophen (10-30) ug/ml Ethyl Alcohol mg/dL (<10.0) mg/dl GEGE Screen Hepatitis A IgM Ab Hep Bs Antigen (Negative) Hep B Core IgM Ab Hepatitis C Antibody (Negative) 02/29/24 02/28/24 02/28/24 Range/Units 03:00 23:20 19:56 WBC (4.8-10.8) K/ul RBC (4.20-5.40) M/uL Hgb (12.0-16.0) g/dl Hct (37.0-47.0) % MCV (80.0-100.0) fL MCH (25.0-34.0) pg MCHC (32.0-36.0) g/dL RDW Std Deviation (36.4-46.3) fL RDW Coeff of Omid (11.5-14.5) % Plt Count (130-400) K/uL MPV (9.4-12.4) fL Immature Gran % (Auto) % Neut % (Auto) % Lymph % (Auto) % Whitley % (Auto) % Eos % (Auto) % Baso % (Auto) % Neut # (Auto) (1.40-6.50) K/uL Lymph # (Auto) (1.20-3.40) K/uL Whitley # (Auto) (0.11-0.59) K/uL Eos # (Auto) (0.00-0.50) K/uL Baso # (Auto) (0.00-0.20) K/uL Immature Gran # (Auto) (0.01-0.20) K/uL PT (9.0-12.0) Seconds INR (0.9-1.1) APTT (21-31) Seconds PTT Ratio Sodium (136-145) mmol/L Potassium (3.5-5.1) mmol/L Chloride (98-107) mmol/L Carbon Dioxide (21-32) mmol/L Anion Gap (3-11) BUN (6-23) mg/dl Creatinine (0.6-1.2) mg/dl Est Cr Clr Drug Dosing ml/min Est GFR ( Amer) ml/min Est GFR (Non-Af Amer) ml/min BUN/Creatinine Ratio (10-20) Glucose (70-99(Fasting)) mg/dl POC Glucose 55 L* 132 H 63 L* (70-99) mg/dl Calcium (8.6-10.3) mg/dl Total Bilirubin (0.2-1.0) mg/dl Direct Bilirubin (0-0.2) mg/dl AST (13-39) U/L ALT (7-52) U/L Alkaline Phosphatase (34-104) U/L Total Protein (6.0-8.3) gm/dl Albumin (3.4-5.0) gm/dl Globulin (2.5-4.0) gm/dl Albumin/Globulin Ratio (0.9-2) Lipase (11-82) U/L HCG, Qual (Negative) Urine Color Urine Appearance (Clear) Urine pH (4.5-7.5) Ur Specific [place] (1.000-1.030) Urine Protein (Negative) Urine Glucose (UA) (Negative) Urine Ketones (Negative) Urine Blood (Negative) Urine Nitrite (Negative) Urine Bilirubin (Negative) Urine Urobilinogen (Negative) Ur Leukocyte Esterase (Negative) Urine WBC (Auto) (0-5) /hpf Urine RBC (Auto) (0-2) /hpf U Hyaline Cast (Auto) (0-2) /lpf U Epithel Cells (Auto) (0-2) /hpf Urine Bacteria (Auto) (None Seen) Acetaminophen (10-30) ug/ml Ethyl Alcohol mg/dL (<10.0) mg/dl GEGE Screen Hepatitis A IgM Ab Hep Bs Antigen (Negative) Hep B Core IgM Ab Hepatitis C Antibody (Negative) 02/28/24 02/28/24 02/28/24 Range/Units 17:05 16:31 15:02 WBC (4.8-10.8) K/ul RBC (4.20-5.40) M/uL Hgb (12.0-16.0) g/dl Hct (37.0-47.0) % MCV (80.0-100.0) fL MCH (25.0-34.0) pg MCHC (32.0-36.0) g/dL RDW Std Deviation (36.4-46.3) fL RDW Coeff of Omid (11.5-14.5) % Plt Count (130-400) K/uL MPV (9.4-12.4) fL Immature Gran % (Auto) % Neut % (Auto) % Lymph % (Auto) % Whitley % (Auto) % Eos % (Auto) % Baso % (Auto) % Neut # (Auto) (1.40-6.50) K/uL Lymph # (Auto) (1.20-3.40) K/uL Whitley # (Auto) (0.11-0.59) K/uL Eos # (Auto) (0.00-0.50) K/uL Baso # (Auto) (0.00-0.20) K/uL Immature Gran # (Auto) (0.01-0.20) K/uL PT (9.0-12.0) Seconds INR (0.9-1.1) APTT (21-31) Seconds PTT Ratio Sodium (136-145) mmol/L Potassium (3.5-5.1) mmol/L Chloride (98-107) mmol/L Carbon Dioxide (21-32) mmol/L Anion Gap (3-11) BUN (6-23) mg/dl Creatinine (0.6-1.2) mg/dl Est Cr Clr Drug Dosing ml/min Est GFR ( Amer) ml/min Est GFR (Non-Af Amer) ml/min BUN/Creatinine Ratio (10-20) Glucose (70-99(Fasting)) mg/dl POC Glucose 117 H 62 L* (70-99) mg/dl Calcium (8.6-10.3) mg/dl Total Bilirubin (0.2-1.0) mg/dl Direct Bilirubin (0-0.2) mg/dl AST (13-39) U/L ALT (7-52) U/L Alkaline Phosphatase (34-104) U/L Total Protein (6.0-8.3) gm/dl Albumin (3.4-5.0) gm/dl Globulin (2.5-4.0) gm/dl Albumin/Globulin Ratio (0.9-2) Lipase (11-82) U/L HCG, Qual (Negative) Urine Color Urine Appearance (Clear) Urine pH (4.5-7.5) Ur Specific [place] (1.000-1.030) Urine Protein (Negative) Urine Glucose (UA) (Negative) Urine Ketones (Negative) Urine Blood (Negative) Urine Nitrite (Negative) Urine Bilirubin (Negative) Urine Urobilinogen (Negative) Ur Leukocyte Esterase (Negative) Urine WBC (Auto) (0-5) /hpf Urine RBC (Auto) (0-2) /hpf U Hyaline Cast (Auto) (0-2) /lpf U Epithel Cells (Auto) (0-2) /hpf Urine Bacteria (Auto) (None Seen) Acetaminophen (10-30) ug/ml Ethyl Alcohol mg/dL < 10.0 (<10.0) mg/dl GEGE Screen Hepatitis A IgM Ab Pending Hep Bs Antigen Negative (Negative) Hep B Core IgM Ab Pending Hepatitis C Antibody Negative (Negative) 02/28/24 02/28/24 Range/Units 14:19 14:07 WBC 12.53 H (4.8-10.8) K/ul RBC 4.92 (4.20-5.40) M/uL Hgb 13.9 (12.0-16.0) g/dl Hct 42.8 (37.0-47.0) % MCV 87.0 (80.0-100.0) fL MCH 28.3 (25.0-34.0) pg MCHC 32.5 (32.0-36.0) g/dL RDW Std Deviation 41.8 (36.4-46.3) fL RDW Coeff of Omid 13.1 (11.5-14.5) % Plt Count 517 H (130-400) K/uL MPV 9.1 L (9.4-12.4) fL Immature Gran % (Auto) 0.3 % Neut % (Auto) 79.8 % Lymph % (Auto) 11.9 % Whitley % (Auto) 6.7 % Eos % (Auto) 0.9 % Baso % (Auto) 0.4 % Neut # (Auto) 10.00 H (1.40-6.50) K/uL Lymph # (Auto) 1.49 (1.20-3.40) K/uL Whitley # (Auto) 0.84 H (0.11-0.59) K/uL Eos # (Auto) 0.11 (0.00-0.50) K/uL Baso # (Auto) 0.05 (0.00-0.20) K/uL Immature Gran # (Auto) 0.04 (0.01-0.20) K/uL PT (9.0-12.0) Seconds INR (0.9-1.1) APTT (21-31) Seconds PTT Ratio Sodium 136 (136-145) mmol/L Potassium 3.8 (3.5-5.1) mmol/L Chloride 96 L (98-107) mmol/L Carbon Dioxide 28 (21-32) mmol/L Anion Gap 12 H (3-11) BUN 18 (6-23) mg/dl Creatinine 1.10 (0.6-1.2) mg/dl Est Cr Clr Drug Dosing 78.9 ml/min Est GFR ( Amer) 79.1 ml/min Est GFR (Non-Af Amer) 68.3 ml/min BUN/Creatinine Ratio 16.4 (10-20) Glucose 133 H (70-99(Fasting)) mg/dl POC Glucose (70-99) mg/dl Calcium 9.9 (8.6-10.3) mg/dl Total Bilirubin 6.7 H (0.2-1.0) mg/dl Direct Bilirubin 4.3 H (0-0.2) mg/dl AST 141 H (13-39) U/L ALT 642 H (7-52) U/L Alkaline Phosphatase 275 H (34-104) U/L Total Protein 8.4 H (6.0-8.3) gm/dl Albumin 4.5 (3.4-5.0) gm/dl Globulin 3.9 (2.5-4.0) gm/dl Albumin/Globulin Ratio 1.2 (0.9-2) Lipase 2318 H (11-82) U/L HCG, Qual Negative (Negative) Urine Color Dark Yellow Urine Appearance Cloudy A (Clear) Urine pH 5.0 (4.5-7.5) Ur Specific [place] 1.027 (1.000-1.030) Urine Protein 1+ H (Negative) Urine Glucose (UA) Negative (Negative) Urine Ketones 1+ H (Negative) Urine Blood Negative (Negative) Urine Nitrite Positive A (Negative) Urine Bilirubin 3+ H (Negative) Urine Urobilinogen Negative (Negative) Ur Leukocyte Esterase 1+ H (Negative) Urine WBC (Auto) 0-5 (0-5) /hpf Urine RBC (Auto) 6-10 H (0-2) /hpf U Hyaline Cast (Auto) 6-10 H (0-2) /lpf U Epithel Cells (Auto) 6-10 H (0-2) /hpf Urine Bacteria (Auto) None Seen (None Seen) Acetaminophen < 3 L (10-30) ug/ml Ethyl Alcohol mg/dL (<10.0) mg/dl GEGE Screen Pending Hepatitis A IgM Ab Hep Bs Antigen (Negative) Hep B Core IgM Ab Hepatitis C Antibody (Negative) PG Care Time/CCT Total # of Minutes Spent Total Time Spent with Patient: Total time spent is greater than 50% in coordination of care (as documented) at patient's floor/unit and/or counseling patient: Coding Level of Care Code 01566 SUB INP/OBS CARE 2/35MIN Diagnoses Abnormal LFTs R79.89
--- NOTE | 2024-02-29 12:52 | Hospitalist Progress Note ---
Date of Service February 29, 2024 Assessment & Plan (1) Hyperbilirubinemia: Plan: Patient presented to the ED on 02/27 with complaints of nausea, vomiting, jaundice. Over last 3 weeks patient has had epigastric discomfort, white/stefania colored stools, nausea, vomiting, and anorexia. Within the last 3 days prior to admission her symptoms worsened. -Reviewed US 02/27: cholelithiasis w/o sonographic evidence of acute choley. no intra or extrahepatic dilatation. -Reviewed KUB 02/27: no acute abnormality -Reviewed MRCP 02/27: cholelithiasis w/o MRI evidence of acute choley. otherwise normal MRCP. -CBC reviewed 02/28: WBC WNL -CMP reviewed 02/28: LFTs downtrending (AST/ALT 50/368, alk phos 195), total bilirubin downtrending 2.1, electrolytes/kidney function stable. -GI progress note reviewed 02/28: suspect pt passed stone. Consider IOC. if concern for stone transfer to center w/ biliary capabailities. -Surgery progress note reviewed 02/28: lap choley 03/01 w/ possible IOC. Trend LFTs -Continue IV Zosyn -On clear liquid diet, NPO after midnight -Tylenol and Morphine prn for pain -Zofran prn for N/V AM CBC, CMP (2) Nausea & vomiting: Plan: See plan above. (3) Type 1 diabetes mellitus: Plan: Longstanding history of type I DM which patient manages with a insulin pump and CGM Basal rate 2 units/h, CF 1-20, ratio 1:8 Patient strongly prefers to use her own pump as able. Will add BSG checks AC/at bedtime or every 4 hours while NPO and allow her to continue her room pump for now. Will transition if she is scheduled for surgery. If she has hypoglycemic or hyperglycemic episodes she is agreeable to switching to pharmacy controlled basal bolus. (4) BMI 38.0-38.9,adult: Plan: Wegovy held Plan Chronic conditions: Hypothyroidism: Synthroid GERD: PPI DVT prophylaxis: Pharmacoprophylaxis held pending surgical evaluation, SCDs Diet: Clears until midnight, n.p.o. at midnight CODE STATUS: Full code Disposition: Medical surgical Admission and Anticipated Discharge Date Admission Date: February 28, 2024 Supervising Physician Co-Signing Physician Notes PA Supervision Note: I did not personally see or examine the patient today, but I verified all maguire points of DESMOND Rehman's assessment and plan with the following exceptions/additions: None Subjective Patient seen and examined this morning. Patient reports to be feeling well today. She states her symptoms have resolved. She denied abdominal pain, nausea, or vomiting thus far today. Patient reports that since starting Wegovy a year ago she has had similar symptoms periodically. Reports her BM yesterday evening was half stefania colored and have brown. Denied any additional complaints. Physical Exam 2 Constitutional: WD/WN, vitals as above Eyes: + sceral icterus Respiratory: normal respiratory effort, lungs clear to auscultation Cardiovascular: RRR, no murmur, no edema Gastrointestinal (Abdomen): normal bowel sounds, soft, nontender, no hepatosplenomegaly Skin: no rashes, warm and dry Psychiatric: A+Ox3, euthymic affect Results & Data Results & Data Vital Signs (Past 12 Hours) Vital Signs Temp Pulse Resp BP Pulse Ox O2 Del Method 02/29/24 08:30 Room Air 02/29/24 07:14 36.7 C 71 14 115/75 100 Room Air Laboratory Results 02/29/24 08:18 02/29/24 08:18 PG Care Time/CCT Total # of Minutes Spent Total Time Spent with Patient: Total time spent is greater than 50% in coordination of care (as documented) at patient's floor/unit and/or counseling patient: Coding Level of Care Code 83497 SUB INP/OBS CARE 3/50MIN Diagnoses Hyperbilirubinemia E80.6 Nausea & vomiting R11.2 Vomiting type: unspecified Type 1 diabetes mellitus E10.9 BMI 38.0-38.9,adult Z68.38 (2) Nausea & vomiting Vomiting type: unspecified Qualified Code(s): R11.2 - Nausea with vomiting, unspecified
--- NOTE | 2024-02-29 13:28 | Surgery Progress Note ---
Date of Service February 29, 2024 Assessment & Plan (1) Cholelithiasis: Plan: cholelithiasis, likely passed a small stone which explains the source of her pain and downtrending liver enzymes and lipase. May have clear liquids today, n.p.o. after midnight Repeat labs including LFTs in the morning plan for robotic assisted laparoscopic cholecystectomy with possible cholangiogram tomorrow in the operating risks discussed to include but not limited to bleeding, infection, retained stone, bile leak, open surgery, damage to surrounding structures including bile duct, need for future or more extensive surgery, failure to treat symptoms, and risks of anesthesia. Potential discharge tomorrow afternoon or Thursday morning (2) Hyperbilirubinemia: (3) Abnormal LFTs: (4) BMI 38.0-38.9,adult: (5) Type 1 diabetes mellitus: (6) Elevated lipase: Admission and Anticipated Discharge Date Admission Date: February 28, 2024 Subjective Presented with jaundice, cholelithiasis on imaging with no choledocholithiasis. She is feeling better, her LFTs are downtrending. She did have some epigastric pain rating to her back over the weekend, that this is better. Physical Exam Constitutional: WD/WN, vitals as above + obese Respiratory: normal respiratory effort, lungs clear to auscultation Cardiovascular: RRR, no murmur, no edema Gastrointestinal (Abdomen): normal bowel sounds, soft, nontender, no hepatosplenomegaly Results & Data Vital Signs (Past 12 Hours) Vital Signs Temp Pulse Resp BP Pulse Ox O2 Del Method 02/29/24 08:30 Room Air 02/29/24 07:14 36.7 C 71 14 115/75 100 Room Air Laboratory Results Laboratory Results - last 24 hr 02/28/24 02/28/24 02/28/24 14:07 14:19 15:02 WBC 12.53 H RBC 4.92 Hgb 13.9 Hct 42.8 MCV 87.0 MCH 28.3 MCHC 32.5 RDW Std Deviation 41.8 RDW Coeff of Omid 13.1 Plt Count 517 H MPV 9.1 L Immature Gran % (Auto) 0.3 Neut % (Auto) 79.8 Lymph % (Auto) 11.9 [place] % (Auto) 6.7 Eos % (Auto) 0.9 Baso % (Auto) 0.4 Neut # (Auto) 10.00 H Lymph # (Auto) 1.49 [place] # (Auto) 0.84 H Eos # (Auto) 0.11 Baso # (Auto) 0.05 Immature Gran # (Auto) 0.04 PT INR APTT PTT Ratio Sodium 136 Potassium 3.8 Chloride 96 L Carbon Dioxide 28 Anion Gap 12 H BUN 18 Creatinine 1.10 Est Cr Clr Drug Dosing 78.9 Est GFR ( Amer) 79.1 Est GFR (Non-Af Amer) 68.3 BUN/Creatinine Ratio 16.4 Glucose 133 H POC Glucose Calcium 9.9 Total Bilirubin 6.7 H Direct Bilirubin 4.3 H AST 141 H ALT 642 H Alkaline Phosphatase 275 H Total Protein 8.4 H Albumin 4.5 Globulin 3.9 Albumin/Globulin Ratio 1.2 Lipase 2318 H HCG, Qual Negative Urine Color Dark Yellow Urine Appearance Cloudy A Urine pH 5.0 Ur Specific [place] 1.027 Urine Protein 1+ H Urine Glucose (UA) Negative Urine Ketones 1+ H Urine Blood Negative Urine Nitrite Positive A Urine Bilirubin 3+ H Urine Urobilinogen Negative Ur Leukocyte Esterase 1+ H Urine WBC (Auto) 0-5 Urine RBC (Auto) 6-10 H U Hyaline Cast (Auto) 6-10 H U Epithel Cells (Auto) 6-10 H Urine Bacteria (Auto) None Seen Acetaminophen < 3 L Ethyl Alcohol mg/dL < 10.0 GEGE Screen Pending Actin IgG Antibody Anti-Smooth Muscle Ab Hepatitis A IgM Ab Pending Hep Bs Antigen Negative Hep B Core IgM Ab Pending Hepatitis C Antibody Negative 02/28/24 02/28/24 02/28/24 16:31 17:05 19:56 WBC RBC Hgb Hct MCV MCH MCHC RDW Std Deviation RDW Coeff of Omid Plt Count MPV Immature Gran % (Auto) Neut % (Auto) Lymph % (Auto) [place] % (Auto) Eos % (Auto) Baso % (Auto) Neut # (Auto) Lymph # (Auto) [place] # (Auto) Eos # (Auto) Baso # (Auto) Immature Gran # (Auto) PT INR APTT PTT Ratio Sodium Potassium Chloride Carbon Dioxide Anion Gap BUN Creatinine Est Cr Clr Drug Dosing Est GFR ( Amer) Est GFR (Non-Af Amer) BUN/Creatinine Ratio Glucose POC Glucose 62 L* 117 H 63 L* Calcium Total Bilirubin Direct Bilirubin AST ALT Alkaline Phosphatase Total Protein Albumin Globulin Albumin/Globulin Ratio Lipase HCG, Qual Urine Color Urine Appearance Urine pH Ur Specific [place] Urine Protein Urine Glucose (UA) Urine Ketones Urine Blood Urine Nitrite Urine Bilirubin Urine Urobilinogen Ur Leukocyte Esterase Urine WBC (Auto) Urine RBC (Auto) U Hyaline Cast (Auto) U Epithel Cells (Auto) Urine Bacteria (Auto) Acetaminophen Ethyl Alcohol mg/dL GEGE Screen Actin IgG Antibody Anti-Smooth Muscle Ab Hepatitis A IgM Ab Hep Bs Antigen Hep B Core IgM Ab Hepatitis C Antibody 02/28/24 02/29/24 02/29/24 23:20 03:00 03:22 WBC RBC Hgb Hct MCV MCH MCHC RDW Std Deviation RDW Coeff of Omid Plt Count MPV Immature Gran % (Auto) Neut % (Auto) Lymph % (Auto) [place] % (Auto) Eos % (Auto) Baso % (Auto) Neut # (Auto) Lymph # (Auto) [place] # (Auto) Eos # (Auto) Baso # (Auto) Immature Gran # (Auto) PT INR APTT PTT Ratio Sodium Potassium Chloride Carbon Dioxide Anion Gap BUN Creatinine Est Cr Clr Drug Dosing Est GFR ( Amer) Est GFR (Non-Af Amer) BUN/Creatinine Ratio Glucose POC Glucose 132 H 55 L* 115 H Calcium Total Bilirubin Direct Bilirubin AST ALT Alkaline Phosphatase Total Protein Albumin Globulin Albumin/Globulin Ratio Lipase HCG, Qual Urine Color Urine Appearance Urine pH Ur Specific [place] Urine Protein Urine Glucose (UA) Urine Ketones Urine Blood Urine Nitrite Urine Bilirubin Urine Urobilinogen Ur Leukocyte Esterase Urine WBC (Auto) Urine RBC (Auto) U Hyaline Cast (Auto) U Epithel Cells (Auto) Urine Bacteria (Auto) Acetaminophen Ethyl Alcohol mg/dL GEGE Screen Actin IgG Antibody Anti-Smooth Muscle Ab Hepatitis A IgM Ab Hep Bs Antigen Hep B Core IgM Ab Hepatitis C Antibody 02/29/24 02/29/24 02/29/24 06:17 08:18 12:18 WBC 7.58 RBC 4.07 L Hgb 11.6 L Hct 34.8 L MCV 85.5 MCH 28.5 MCHC 33.3 RDW Std Deviation 41.1 RDW Coeff of Omid 13.0 Plt Count 427 H MPV 9.3 L Immature Gran % (Auto) 0.4 Neut % (Auto) 61.1 Lymph % (Auto) 24.4 [place] % (Auto) 9.9 Eos % (Auto) 3.7 Baso % (Auto) 0.5 Neut # (Auto) 4.63 Lymph # (Auto) 1.85 [place] # (Auto) 0.75 H Eos # (Auto) 0.28 Baso # (Auto) 0.04 Immature Gran # (Auto) 0.03 PT 11.0 INR 1.0 APTT 28 PTT Ratio 1.0 Sodium 136 Potassium 3.7 Chloride 103 Carbon Dioxide 27 Anion Gap 6 BUN 10 Creatinine 0.83 Est Cr Clr Drug Dosing 104.6 Est GFR ( Amer) 111.2 Est GFR (Non-Af Amer) 96.0 BUN/Creatinine Ratio 12.0 Glucose 110 H POC Glucose 97 83 Calcium 8.9 Total Bilirubin 2.1 H D Direct Bilirubin AST 50 H ALT 368 H Alkaline Phosphatase 195 H Total Protein 6.6 D Albumin 3.5 Globulin 3.1 Albumin/Globulin Ratio 1.1 Lipase 146 H HCG, Qual Urine Color Urine Appearance Urine pH Ur Specific [place] Urine Protein Urine Glucose (UA) Urine Ketones Urine Blood Urine Nitrite Urine Bilirubin Urine Urobilinogen Ur Leukocyte Esterase Urine WBC (Auto) Urine RBC (Auto) U Hyaline Cast (Auto) U Epithel Cells (Auto) Urine Bacteria (Auto) Acetaminophen Ethyl Alcohol mg/dL GEGE Screen Actin IgG Antibody Pending Anti-Smooth Muscle Ab Pending Hepatitis A IgM Ab Hep Bs Antigen Hep B Core IgM Ab Hepatitis C Antibody Diagnostic Findings Gallbladder Ultrasound 02/28/24 14:45 ULTRASOUND RIGHT UPPER QUADRANT ABDOMEN CLINICAL HISTORY: Vomiting. Elevated bilirubin. COMPARISON STUDY: Abdominal radiograph dated 02/25/2024 TECHNIQUE: Real-time, grayscale, and color flow sonography of the right upper quadrant of the abdomen was performed. Images are reviewed in the transverse and longitudinal planes. FINDINGS: Liver: The liver is normal in size and echotexture. There is no intrahepatic biliary ductal dilatation. The main portal vein is patent. Gallbladder: The gallbladder is mildly distended and contains layering gallstones. There is no significant gallbladder wall thickening or pericholecystic fluid. A sonographic Bravo's sign is reportedly absent. The common bile duct measures up to 0.4 cm in diameter. Pancreas: Visualized portions of the pancreatic head and body are normal in appearance. The splenic vein is patent. Right kidney: Survey images of the right kidney demonstrate normal size and echotexture. There is no hydronephrosis. Ascites: None. IMPRESSION: 1. Cholelithiasis without sonographic evidence of acute cholecystitis. If there is strong clinical concern for acute cholecystitis a nuclear hepatobiliary scan could be considered. 2. There is no intra or extrahepatic biliary ductal dilatation. ACT 112: Negative or not required by law. Electronically signed by: Shiva Gutierrez M.D. 02/28/2024 4:22 PM KUB X-Ray 02/28/24 14:49 KUB CLINICAL HISTORY: Constipation. FINDINGS: 2 AP supine abdominal radiographs are obtained. No prior studies are available for comparison at the time of dictation. There is a nonobstructed abdominal bowel gas pattern. Mild to moderate fecal retention is seen in the right colon. No evidence of intraperitoneal free air is identified on these supine images. There are no abnormal abdominal calcifications. The bony structures appear intact. IMPRESSION: No acute abnormality is identified. Electronically signed by: Shiva Gutierrez M.D. 02/28/2024 4:10 PM Cholangiopancreatography MRI 02/28/24 16:43 MRCP CLINICAL HISTORY: Vomiting. Elevated bilirubin. Jaundice. Cholelithiasis. COMPARISON STUDY: Abdominal radiographs and ultrasound performed earlier the same day 02/28/2024. TECHNIQUE: Abdominal MRCP was performed utilizing various T2-weighted sequences in the axial and coronal planes. IV contrast was not administered for this examination. 3-D reformats were created and assessed. Diffusion-weighted imaging was utilized. FINDINGS: The gallbladder is mildly distended and contains numerous small gallstones. There is no MRI evidence of acute cholecystitis. There is no intra or extrahepatic biliary ductal dilatation. The common bile duct measures up to 3 mm in diameter. No intraluminal filling defects are seen to indicate choledocholithiasis. The pancreatic duct is normal in caliber. The unenhanced liver, spleen, pancreas, adrenal glands, and kidneys are grossly unremarkable. The abdominal aorta is normal in course and caliber. No bowel obstruction is seen. There is no abdominal ascites. No pleural effusion is identified. IMPRESSION: 1. Cholelithiasis without MRI evidence of acute cholecystitis. 2. Otherwise normal MRCP. There is no clear evidence of choledocholithiasis. Dictated: 02/28/2024 5:52 PM Transcribed: 02/28/2024 7:13 PM Leonarda [id number] Jolly [id number] Electronically signed by: Shiva Gutierrez M.D. 02/28/2024 7:23 PM PG Care Time/CCT Total # of Minutes Spent Total Time Spent with Patient: Total time spent is greater than 50% in coordination of care (as documented) at patient's floor/unit and/or counseling patient: Coding Level of Care Code 81983 SUB INP/OBS CARE 2/35MIN Diagnoses Calculus of gallbladder without cholecystitis without obstruction K80.20 Cholelithiasis location: gallbladder Cholecystitis presence: without cholecystitis Biliary obstruction: without biliary obstruction Hyperbilirubinemia E80.6 Abnormal LFTs R79.89 BMI 38.0-38.9,adult Z68.38 Type 1 diabetes mellitus E10.9 Elevated lipase R74.8 (1) Cholelithiasis Cholelithiasis location: gallbladder Cholecystitis presence: without cholecystitis Biliary obstruction: without biliary obstruction Qualified Code(s): K80.20 - Calculus of gallbladder without cholecystitis without obstruction
[2024-02-29] MEDS ORDERED: INSULIN ASPART 100 UNITS/ML VIAL SC PRN (14:15)
[2024-02-29] MEDS: INSULIN, Rapid-Acting PUMP SCH (18:01)
[2024-02-29] MEDS: CARBOHYDRATES FOR HYPOGLYCEMIA PO PRN (19:14)
[2024-03-01 06:03] LABS: Basophils # (auto) 0.04 K/uL (0.00-0.20); Basophils % (auto) 0.6 %; Eosinophils # (auto) 0.45 K/uL (0.00-0.50); Eosinophils % (auto) 6.6 %; Hematocrit (blood only) 32.7 % (37.0-47.0); Immature Granulocytes # (auto) 0.02 K/uL (0.01-0.20); Immature Granulocytes % (auto) 0.3 %; Lymphocytes # (auto) 2.08 K/uL (1.20-3.40); Lymphocytes % (auto) 30.5 %; Mean Corpuscular Hemoglobin 29.2 pg (25.0-34.0); Mean Corpuscular Hgb Conc 33.6 g/dL (32.0-36.0); Mean Corpuscular Volume 86.7 fL (80.0-100.0); Mean Platelet Volume 10.2 fL (9.4-12.4); Monocytes # (auto) 0.67 K/uL (0.11-0.59); Monocytes % (auto) 9.8 %; Neutrophils # (auto) 3.55 K/uL (1.40-6.50); Neutrophils % (auto) 52.2 %; Platelet Count 303 K/uL (130-400); RDW Standard Deviation 41.1 fL (36.4-46.3); Red Blood Count 3.77 M/uL (4.20-5.40); White Blood Count 6.81 K/ul (4.8-10.8)
[2024-03-01 06:24] LABS: Alanine Aminotransferase 252 U/L (7-52); Albumin Level 3.2 gm/dl (3.4-5.0); Alkaline Phosphatase 160 U/L (34-104); Anion Gap 4 (3-11); Bilirubin,Total 1.3 mg/dl (0.2-1.0); Blood Urea Nitrogen 6 mg/dl (6-23); Calcium 8.7 mg/dl (8.6-10.3); Carbon Dioxide 28 mmol/L (21-32); Chloride 104 mmol/L (98-107); Creatinine Clr Calc Pharmacy 115.7 ml/min; Est GFR (African American) 125.7 ml/min; Est GFR (Non-African American) 108.5 ml/min; Globulin 3.2 gm/dl (2.5-4.0); Glucose 90 mg/dl (70-99(Fasting)); Sodium 136 mmol/L (136-145); Total Protein 6.4 gm/dl (6.0-8.3)
[2024-03-01] MEDS: LACTATED RINGER'S 1,000 ML IV SCH (07:56)
--- NOTE | 2024-03-01 08:24 | Surgery Progress Note ---
Date of Service March 01, 2024 Assessment & Plan (1) Cholelithiasis: Plan: cholelithiasis, likely passed a small stone. LFTs continue to downtrend plan for aparoscopic cholecystectomy with possible cholangiogram today risks discussed to include but not limited to bleeding, infection, retained stone, bile leak, open surgery, damage to surrounding structures including bile duct, need for future or more extensive surgery, failure to treat symptoms, and risks of anesthesia. Potential discharge today after surgery versus tomorrow morning Wound care instructions, activity restrictions, return precautions given Follow-up in 2 weeks in general surgery clinic (2) Hyperbilirubinemia: (3) Abnormal LFTs: (4) BMI 38.0-38.9,adult: (5) Type 1 diabetes mellitus: (6) Elevated lipase: Admission and Anticipated Discharge Date Admission Date: February 28, 2024 Subjective Admitted with epigastric pain and elevated liver enzymes, cholelithiasis without cholecystitis on ultrasound and MRCP, no choledocholithiasis. Feeling better. Physical Exam Constitutional: WD/WN, vitals as above + obese Respiratory: normal respiratory effort, lungs clear to auscultation Cardiovascular: RRR, no murmur, no edema Gastrointestinal (Abdomen): normal bowel sounds, soft, nontender, no hepatosplenomegaly Results & Data Vital Signs (Past 12 Hours) Vital Signs Temp Pulse Pulse Pulse Resp BP BP 03/01/24 07:57 36.7 C 84 20 127/71 03/01/24 07:30 36.7 C 105 H 19 150/88 H 02/29/24 22:57 36.6 C 75 12 115/71 Pulse Ox O2 Del Method 03/01/24 07:57 99 Room Air 03/01/24 07:30 99 Room Air 02/29/24 22:57 98 Room Air Laboratory Results Laboratory Results - last 24 hr 02/28/24 02/29/24 02/29/24 15:02 08:18 12:18 WBC 7.58 RBC 4.07 L Hgb 11.6 L Hct 34.8 L MCV 85.5 MCH 28.5 MCHC 33.3 RDW Std Deviation 41.1 RDW Coeff of Omid 13.0 Plt Count 427 H MPV 9.3 L Immature Gran % (Auto) 0.4 Neut % (Auto) 61.1 Lymph % (Auto) 24.4 [place] % (Auto) 9.9 Eos % (Auto) 3.7 Baso % (Auto) 0.5 Neut # (Auto) 4.63 Lymph # (Auto) 1.85 [place] # (Auto) 0.75 H Eos # (Auto) 0.28 Baso # (Auto) 0.04 Immature Gran # (Auto) 0.03 PT 11.0 INR 1.0 APTT 28 PTT Ratio 1.0 Sodium 136 Potassium 3.7 Chloride 103 Carbon Dioxide 27 Anion Gap 6 BUN 10 Creatinine 0.83 Est Cr Clr Drug Dosing 104.6 Est GFR ( Amer) 111.2 Est GFR (Non-Af Amer) 96.0 BUN/Creatinine Ratio 12.0 Glucose 110 H POC Glucose 83 Calcium 8.9 Total Bilirubin 2.1 H D AST 50 H ALT 368 H Alkaline Phosphatase 195 H Total Protein 6.6 D Albumin 3.5 Globulin 3.1 Albumin/Globulin Ratio 1.1 Lipase 146 H Actin IgG Antibody Pending Anti-Smooth Muscle Ab Pending Hep Bs Antigen Negative Hepatitis C Antibody Negative 02/29/24 02/29/24 02/29/24 18:51 18:53 19:10 WBC RBC Hgb Hct MCV MCH MCHC RDW Std Deviation RDW Coeff of Omid Plt Count MPV Immature Gran % (Auto) Neut % (Auto) Lymph % (Auto) [place] % (Auto) Eos % (Auto) Baso % (Auto) Neut # (Auto) Lymph # (Auto) [place] # (Auto) Eos # (Auto) Baso # (Auto) Immature Gran # (Auto) PT INR APTT PTT Ratio Sodium Potassium Chloride Carbon Dioxide Anion Gap BUN Creatinine Est Cr Clr Drug Dosing Est GFR ( Amer) Est GFR (Non-Af Amer) BUN/Creatinine Ratio Glucose POC Glucose 46 L* 43 L* 62 L* Calcium Total Bilirubin AST ALT Alkaline Phosphatase Total Protein Albumin Globulin Albumin/Globulin Ratio Lipase Actin IgG Antibody Anti-Smooth Muscle Ab Hep Bs Antigen Hepatitis C Antibody 02/29/24 02/29/24 03/01/24 19:33 19:55 05:23 WBC 6.81 RBC 3.77 L Hgb 11.0 L Hct 32.7 L MCV 86.7 MCH 29.2 MCHC 33.6 RDW Std Deviation 41.1 RDW Coeff of Omid 13.0 Plt Count 303 MPV 10.2 Immature Gran % (Auto) 0.3 Neut % (Auto) 52.2 Lymph % (Auto) 30.5 [place] % (Auto) 9.8 Eos % (Auto) 6.6 Baso % (Auto) 0.6 Neut # (Auto) 3.55 Lymph # (Auto) 2.08 [place] # (Auto) 0.67 H Eos # (Auto) 0.45 Baso # (Auto) 0.04 Immature Gran # (Auto) 0.02 PT INR APTT PTT Ratio Sodium 136 Potassium TNP Chloride 104 Carbon Dioxide 28 Anion Gap 4 BUN 6 Creatinine 0.75 Est Cr Clr Drug Dosing 115.7 Est GFR ( Amer) 125.7 Est GFR (Non-Af Amer) 108.5 BUN/Creatinine Ratio 8.0 L Glucose 90 POC Glucose 66 L* 118 H Calcium 8.7 Total Bilirubin 1.3 H AST TNP ALT 252 H Alkaline Phosphatase 160 H Total Protein 6.4 Albumin 3.2 L Globulin 3.2 Albumin/Globulin Ratio 1.0 Lipase Actin IgG Antibody Anti-Smooth Muscle Ab Hep Bs Antigen Hepatitis C Antibody 03/01/24 03/01/24 07:47 07:59 WBC RBC Hgb Hct MCV MCH MCHC RDW Std Deviation RDW Coeff of Omid Plt Count MPV Immature Gran % (Auto) Neut % (Auto) Lymph % (Auto) [place] % (Auto) Eos % (Auto) Baso % (Auto) Neut # (Auto) Lymph # (Auto) [place] # (Auto) Eos # (Auto) Baso # (Auto) Immature Gran # (Auto) PT INR APTT PTT Ratio Sodium Potassium Pending Chloride Carbon Dioxide Anion Gap BUN Creatinine Est Cr Clr Drug Dosing Est GFR ( Amer) Est GFR (Non-Af Amer) BUN/Creatinine Ratio Glucose POC Glucose 102 H Calcium Total Bilirubin AST Pending ALT Alkaline Phosphatase Total Protein Albumin Globulin Albumin/Globulin Ratio Lipase Actin IgG Antibody Anti-Smooth Muscle Ab Hep Bs Antigen Hepatitis C Antibody PG Care Time/CCT Total # of Minutes Spent Total Time Spent with Patient: Total time spent is greater than 50% in coordination of care (as documented) at patient's floor/unit and/or counseling patient: Coding Level of Care Code 83502 SUB INP/OBS CARE 2/35MIN Diagnoses Calculus of gallbladder without cholecystitis without obstruction K80.20 Cholelithiasis location: gallbladder Cholecystitis presence: without cholecystitis Biliary obstruction: without biliary obstruction Hyperbilirubinemia E80.6 Abnormal LFTs R79.89 BMI 38.0-38.9,adult Z68.38 Type 1 diabetes mellitus E10.9 Elevated lipase R74.8 (1) Cholelithiasis Cholelithiasis location: gallbladder Cholecystitis presence: without cholecystitis Biliary obstruction: without biliary obstruction Qualified Code(s): K80.20 - Calculus of gallbladder without cholecystitis without obstruction
[2024-03-01 08:25] LABS: Potassium 4.7 mmol/L (3.5-5.1)
[2024-03-01] MEDS ORDERED: ePHEDrine sulfate 50 MG/ML AMP IV PRN (08:25)
[2024-03-01] MEDS ORDERED: ATROPINE SULFATE 0.1 MG/ML 10ML SYR IV PRN (08:25)
[2024-03-01] MEDS: INDOCYANINE GREEN 25 MG VIAL INJ ONE (08:26)
--- NOTE | 2024-03-01 08:35 | Anesthesiology Consultation ---
Date of Service March 01, 2024 Assessment & Plan Chart Review Chart Review: Acceptable Risk for Surgery Consults Requested none ASA ASA2 Proposed Anesthesia Anesthesia Type: General Risk / Benefits Reviewed With: PT / POA / Parent / Guardian, Accepts Plan and Informed Consent Obtained History Surgery Operation Date: 03/01/24 09:50 Proposed Procedures p Robotic Laparoscopic Cholecystectomy - Leroy Bryant DO, FACS Height/Weight Height: 5 ft 1 in Weight: 92.4 kg Allergies Allergy/AdvReac Type Severity Reaction Status Date / Time ibuprofen [From Motrin] Allergy rash Verified 02/28/24 18:33 Medications Home Medications Medication Instructions Recorded Confirmed Last Taken ascorbic acid (vitamin C) 1,000 mg 1 g PO DAILY 02/28/24 02/28/24 Unknown tablet (Vitamin C) cholecalciferol (vitamin D3) 25 50 mcg PO DAILY 02/28/24 02/28/24 02/27/24 mcg (1,000 unit) tablet (Vitamin D3) insulin aspart U-100 100 unit/mL 150 unit continuous subcutaneous 02/28/24 02/28/24 02/28/24 subcutaneous solution (Novolog infusion UD U-100 Insulin aspart) insulin glargine 100 unit/mL (3 30 unit subcut UD PRN PUMP FAILURE 02/28/24 02/28/24 Unknown mL) subcutaneous pen (Lantus Solostar U-100 Insulin) levothyroxine 112 mcg tablet See Rx Instructions .Route .COMPLEX 02/28/24 02/28/24 02/27/24 losartan 50 mg tablet 50 mg PO QAM 02/28/24 02/28/24 02/27/24 metformin 500 mg tablet,extended 1,000 mg PO QAM 02/28/24 02/28/24 Unknown release 24 hr omeprazole 40 mg capsule,delayed 40 mg PO DAILY 02/28/24 02/28/24 02/27/24 release semaglutide (weight loss) 2.4 2.4 mg subcut WK 02/28/24 02/28/24 02/23/24 mg/0.75 mL subcutaneous pen injector (Janusz) Active Medications Generic Name Dose Route Start Last Admin Trade Name Freq PRN Reason Stop Dose Admin Dextrose 25 - 50 ml 02/28/24 19:10 02/29/24 03:02 Dextrose 50% 50 Ml Syringe IV 03/29/24 19:09 50 ml UD PRN Administration Hypoglycemia Protocol Protocol Dextrose/Lactated Ringer's 1,000 mls @ 125 mls/hr 02/28/24 18:30 03/01/24 08:22 D5w And Lactated Ringers IV 03/29/24 18:29 0 mls/hr .Q8H DEMOND Infusion Piperacillin Sod/Tazobactam Sod 4.5 gm in 100 mls @ 25 mls/hr 02/29/24 03:00 03/01/24 08:22 Zosyn IV 03/10/24 02:59 Infused Q8H DEMOND Infusion Lactated Ringer's 1,000 mls @ 15 mls/hr 03/01/24 07:30 03/01/24 07:56 Lr IV 03/31/24 07:29 15 mls/hr .Q24H DEMOND Administration Insulin Aspart 0 each 02/29/24 16:30 03/01/24 08:23 Insulin, Rapid-Acting Pump N/A 03/30/24 16:29 Not Given ACHS DEMOND Protocol Levothyroxine Sodium 112 mcg 02/29/24 06:30 03/01/24 05:33 Levothyroxine Sodium 112 Mcg Tablet PO 03/30/24 06:29 112 mcg DAILYBB DEMOND Administration Miscellaneous 15 - 30 gm 02/28/24 19:10 02/29/24 19:30 Carbohydrates For Hypoglycemia PO 03/29/24 19:09 15 gm UD PRN Administration Hypoglycemia Protocol Pantoprazole Sodium 40 mg 02/29/24 09:00 02/29/24 09:22 Pantoprazole 40 Mg Tab PO 03/30/24 08:59 40 mg DAILY DEMOND Administration NPO Date Last Intake of Fluids: 02/29/24 Time Last Intake of Fluids: 22:30 Date Last Intake of Solids: 02/29/24 Time Last Intake of Solids: 17:30 Exercise / Class Metabolic Activity II 4-5 Yardwork/Stairs/Walk up hill Past Anesthesia History No Hx of Anesthesia Complications and No Family Hx of Anesthesia Complications History of PONV No Hx of PONV and No Hx of Motion Sickness Social History Smoking Status: Never smoker Hx Alcohol Use: No Hx Substance Use: No Physical Exam Vital Signs Last Vital Signs Temp 98.1 F 03/01/24 07:57 Pulse 84 03/01/24 07:57 Resp 20 03/01/24 07:57 BP 127/71 03/01/24 07:57 Pulse Ox 99 03/01/24 07:57 O2 Del Method Room Air 03/01/24 07:57 ENMT Mouth: no dentition abnormality Thyromental Distance: > or= 3.5 Finger Breadths Mallampati Class: II Neck normal visual inspection Respiratory normal respiratory effort Auscultation: lungs clear to auscultation bilaterally Cardiovascular Rate/Rhythm: regular rate and regular rhythm Testing Laboratory Results 03/01/24 05:23 03/01/24 07:47 PT 11.0 Seconds (9.0-12.0) 02/29/24 08:18 INR 1.0 (0.9-1.1) 02/29/24 08:18 APTT 28 Seconds (21-31) 02/29/24 08:18 Urine Color Dark Yellow 02/28/24 14:19 Urine Appearance Cloudy (Clear) A 02/28/24 14:19 Urine pH 5.0 (4.5-7.5) 02/28/24 14:19 Ur Specific [place] 1.027 (1.000-1.030) 02/28/24 14:19 Urine Protein 1+ (Negative) H 02/28/24 14:19 Urine Glucose (UA) Negative (Negative) 02/28/24 14:19 Urine Ketones 1+ (Negative) H 02/28/24 14:19 Urine Nitrite Positive (Negative) A 02/28/24 14:19 Ur Leukocyte Esterase 1+ (Negative) H 02/28/24 14:19 Urine WBC (Auto) 0-5 /hpf (0-5) 02/28/24 14:19 Urine RBC (Auto) 6-10 /hpf (0-2) H 02/28/24 14:19 U Hyaline Cast (Auto) 6-10 /lpf (0-2) H 02/28/24 14:19 U Epithel Cells (Auto) 6-10 /hpf (0-2) H 02/28/24 14:19 Urine Bacteria (Auto) None Seen (None Seen) 02/28/24 14:19 03/01/24 07:59 POC Glucose 102 H
[2024-03-01] MEDS ORDERED: MIDAZOLAM HCL 1 MG/ML 2ML VIAL ONE (08:41)
[2024-03-01] MEDS ORDERED: fentaNYL citrate PF 100 MCG/2 ML VIAL ONE ×2 (08:41→09:10)
[2024-03-01] MEDS: SCOPOLAMINE 1 MG/72 HR TDSY PATCH TD ONE (08:43)
[2024-03-01] MEDS ORDERED: DexMEDEtomidine HCL IV 100 MCG/ML VIAL IV ONE (09:09)
[2024-03-01] MEDS ORDERED: ROCURONIUM BROMIDE 10 MG/ML 5 ML VIAL IV ONE (09:13)
[2024-03-01] MEDS ORDERED: ONDANSETRON INJ 2 MG/ML 2 ML VIAL ONE (09:13)
[2024-03-01] MEDS ORDERED: PROPOFOL IV EMULSION 10 MG/ML 20 ML VIAL IV ONE (09:13)
[2024-03-01] MEDS ORDERED: diphenhydrAMINE 50 MG/ML VIAL ONE (09:13)
--- NOTE | 2024-03-01 09:50 | Operative Report ---
PG Post Operative Report Pre & Post Diagnosis Operation Date: 03/01/24 09:50 Pre-Op Diagnosis: TRANSAMINITIS, OBSTRUCTIVE BILIARY DISEASE Post-Op Diagnosis: TRANSAMINITIS, OBSTRUCTIVE BILIARY DISEASE I identified the patient and participated in the time-out.: Yes Procedure Operation Date: 03/01/24 09:50 Actual Procedures p Robotic Laparoscopic Cholecystectomy(Not Applicable) - Leroy Bryant DO, SUKHI Surgeon Leroy Bryant DO, SUKHI Rehabilitation Tech Karen Galeano Estimated Blood Loss 5 Findings Consistent with Post-Op Diagnosis Mild chronic cholecystitis, critical view of safety obtained, cystic duct and artery doubly clipped and divided Specimens Gallbladder Anesthesia Type General Complications none Disposition Accompanied Patient To Recovery: No Disposition: Recovery Room Indications 28-year-old female admitted with abdominal pain and transaminitis, ultrasound and MRCP showed cholelithiasis without choledocholithiasis or cholecystitis. LFTs down trended and felt to be passed stone. Plan for laparoscopic cholecystectomy, possible cholangiogram. The risks of the procedure were discussed, all questions were answered, and the patient agreed to proceed with surgery as planned. Description of Procedure The patient was properly identified, consented, and taken to the operating room where she was placed in the supine position. 2.5 mg of indocyanine green were administered IV approximately 45 min prior to the surgery. General endotracheal anesthesia was induced. SCDs and a safety belt were placed. Preoperative antibiotics were administered. The patient's abdomen was prepped and draped in the standard sterile fashion. A surgical timeout was performed and all parties were in agreement that this was the correct patient and procedure to be performed and we continued as planned. An incision was made just above the umbilicus and to the right of midline. Veress needle was inserted and saline drop test confirmed entry to the abdomen. The abdomen was insufflated with carbon dioxide which the patient tolerated incident. Veress needle was removed and the abdomen is entered using the Optiview technique and a 5 mm camera. The introducer was removed and the abdomen inspected. No damage from initial trocar placement or Veress needle placement was identified. There were no significant abnormalities to the 4 quadrants of the abdomen. 8 mm robotic ports were then placed on the left and right. An additional 5 mm nutrition services assistant port was placed in the lateral right subcostal position. The patient was placed in reverse Trendelenburg position and rotated towards the left. The robot was then docked and the camera and robotic instruments were inserted. Gallbladder was very mildly and chronically inflamed. The dome of the gallbladder was grasped by the nutrition services assistant and retracted towards the left upper quadrant and the infundibulum was retracted toward the right lower quadrant revealing Calot's triangle. Peritoneal attachments were taken down with electrocautery and blunt dissection. The cystic duct and artery were circumferentially dissected. A window of safety was obtained showing the cystic duct entering the gallbladder with no aberrant structures noted. We were able to identify the cystic duct utilizing the ICG. The cystic duct and artery were doubly clipped and divided. The gallbladder was then lifted off the gallbladder fossa with electrocautery. The right upper quadrant was irrigated and hemostasis was found to be good. The gallbladder was placed in an Endo Catch bag and removed through the one of the port sites. The instruments were removed and the robot was undocked. The trochars were removed and the abdomen was allowed to collapse. The skin of all ports was closed with 4-0 Monocryl subcuticular sutures. Dermabond was placed over the wounds. The patient was extubated in the operating room and taken to the PACU where she recovered without apparent incident. All sponge, instrument and needle counts were correct at the conclusion of the procedure. The patient tolerated the procedure well. The physician's nutrition services assistant was present and scrubbed for the entirety of the case and was essential in positioning the patient, prepping and draping, retraction and exposure, driving the laparoscope, exchange of the robotic instruments removal of the gallbladder, closure of the incisions, and placement of the dressings. I attest to the content of the Intraoperative Record and any orders documented therein. Any exceptions are noted below.
[2024-03-01] MEDS ORDERED: SUGAMMADEX SODIUM 200 MG/2 ML VIAL IV ONE (09:52)
[2024-03-01] MEDS: BUPIVACAINE 0.5 % 5 MG/1 ML MPF 30ML VIAL ONE (09:53)
[2024-03-01] MEDS: fentaNYL citrate PF 100 MCG/2 ML VIAL IV PRN (10:30)
[2024-03-01] MEDS: ONDANSETRON INJ 2 MG/ML 2 ML VIAL IV PRN ×2 (10:37→17:42)
[2024-03-01] MEDS: DROPERIDOL 5 MG/2 ML VIAL IV STA (11:15)
[2024-03-01] MEDS: DROPERIDOL 5 MG/2 ML VIAL ONE (11:20)
[2024-03-01 12:42] LABS: Hepatitis A Antibody IgM NON-REACTIVE (NON-REACTIVE); Hepatitis B Core Antibody IgM NON-REACTIVE (NON-REACTIVE)
--- NOTE | 2024-03-01 12:53 | Anesthesiology Progress Note ---
Date of Service March 01, 2024 Anesthesia Post Procedure Vital Signs Vital Signs: Temp Pulse Pulse Pulse Resp BP BP 03/01/24 12:51 98.1 F 67 17 144/82 H 03/01/24 12:22 98.1 F 68 16 146/83 H 03/01/24 12:00 72 17 144/81 H 03/01/24 11:45 64 20 143/89 H 03/01/24 11:30 63 18 150/85 H 03/01/24 11:15 68 14 153/88 H 03/01/24 11:00 98.2 F 66 18 147/80 H 03/01/24 10:50 68 20 147/83 H 03/01/24 10:40 68 18 151/76 H 03/01/24 10:30 76 18 154/91 H 03/01/24 10:20 68 12 143/94 H 03/01/24 10:12 97.5 F L 83 16 144/82 H 03/01/24 07:57 98.1 F 84 20 127/71 03/01/24 07:30 98.1 F 105 H 19 150/88 H 02/29/24 22:57 97.9 F 75 12 115/71 02/29/24 15:09 97.5 F L 81 16 131/82 Pulse Ox O2 Del Method O2 Flow Rate 03/01/24 12:51 97 Room Air 03/01/24 12:22 98 Room Air 03/01/24 12:00 97 Room Air 03/01/24 11:45 97 Room Air 03/01/24 11:30 96 Room Air 03/01/24 11:15 96 Room Air 03/01/24 11:00 96 Room Air 03/01/24 10:50 93 Room Air 03/01/24 10:40 94 Room Air 03/01/24 10:30 98 Room Air 03/01/24 10:20 98 Room Air 03/01/24 10:12 100 Oxymask 6 03/01/24 07:57 99 Room Air 03/01/24 07:30 99 Room Air 02/29/24 22:57 98 Room Air 02/29/24 15:09 99 Room Air Pain Intensity Right Abdomen: Pain Intensity: 4 Substernal: Pain Intensity: 4 Transfer of Care Handoff Completed per policy Notes Mental Status: alert / awake / arousable and participated in evaluation Patient Amnestic to Procedure: Yes Nausea / Vomiting: adequately controlled Pain: adequately controlled Airway Patency, RR, SpO2: stable & adequate BP & HR: stable & adequate Hydration State: stable & adequate Anesthetic Complications: no major complications apparent and Pt Satisfied with anesthetic care
[2024-03-01] MEDS: MoRPHine SULFATE 4 MG/ML 1 ML CARP\\VIAL IV PRN (14:39)
--- NOTE | 2024-03-01 15:41 | Hospitalist Progress Note ---
Date of Service March 01, 2024 Assessment & Plan (1) Hyperbilirubinemia: Plan: Patient presented to the ED on 02/27 with complaints of nausea, vomiting, jaundice. Over last 3 weeks patient has had epigastric discomfort, white/stefania colored stools, nausea, vomiting, and anorexia. Within the last 3 days prior to admission her symptoms worsened. -Reviewed US 02/27: cholelithiasis w/o sonographic evidence of acute choley. no intra or extrahepatic dilatation. -Reviewed KUB 02/27: no acute abnormality -Reviewed MRCP 02/27: cholelithiasis w/o MRI evidence of acute choley. otherwise normal MRCP. -CBC reviewed 03/01: WBC WNL -CMP reviewed 03/01: LFTs downtrending (AST/ALT 32/252, alk phos 160), total bilirubin downtrending 1.3, electrolytes/kidney function stable. -GI progress note reviewed 02/28: suspect pt passed stone. Consider IOC. if concern for stone transfer to center w/ biliary capabailities. -Surgery operative report reviewed 03/01 - s/p lap choley -Continue IV Zosyn -On clear liquid diet, advance as tolerated -Tylenol and Morphine prn for pain -Zofran prn for N/V AM CBC, CMP (2) Nausea & vomiting: Plan: See plan above. (3) Type 1 diabetes mellitus: Plan: Longstanding history of type I DM which patient manages with a insulin pump and CGM Basal rate 2 units/h, CF 1-20, ratio 1:8 Patient strongly prefers to use her own pump as able. Will add BSG checks AC/at bedtime or every 4 hours while NPO and allow her to continue her room pump for now. Will transition if she is scheduled for surgery. If she has hypoglycemic or hyperglycemic episodes she is agreeable to switching to pharmacy controlled basal bolus. (4) BMI 38.0-38.9,adult: Plan: Wegovy held Plan Chronic conditions: Hypothyroidism: Synthroid GERD: PPI DVT prophylaxis: Pharmacoprophylaxis held pending surgical evaluation, SCDs Diet: Clears until midnight, n.p.o. at midnight CODE STATUS: Full code Disposition: Medical surgical Updated patient's mother at bedside 03/01 Admission and Anticipated Discharge Date Admission Date: February 28, 2024 Subjective Patient seen and examined this afternoon. she underwent a lap choley this AM. Patient reported abdominal discomfort. Stated the morphine was effective in controlling her pain but makes her fatigued. Patient has still experienced intermittent waves of nausea but has not had any vomiting following surgery. She has not ate yet and states she does not have an appetite. Physical Exam 2 Constitutional: WD/WN, vitals as above Respiratory: normal respiratory effort, lungs clear to auscultation Cardiovascular: RRR, no murmur, no edema Gastrointestinal (Abdomen): tenderness to mild palpation Psychiatric: A+Ox3, euthymic affect Results & Data Results & Data Vital Signs (Past 12 Hours) Vital Signs Temp Pulse Pulse Resp BP BP Pulse Ox 03/01/24 15:24 36.7 C 68 16 145/84 H 100 03/01/24 14:26 36.7 C 74 18 139/83 98 03/01/24 13:21 36.7 C 72 15 144/80 H 100 03/01/24 12:51 36.7 C 67 17 144/82 H 97 03/01/24 12:22 36.7 C 68 16 146/83 H 98 03/01/24 12:00 72 17 144/81 H 97 03/01/24 11:45 64 20 143/89 H 97 03/01/24 11:30 63 18 150/85 H 96 03/01/24 11:15 68 14 153/88 H 96 03/01/24 11:00 36.8 C 66 18 147/80 H 96 03/01/24 10:50 68 20 147/83 H 93 03/01/24 10:40 68 18 151/76 H 94 03/01/24 10:30 76 18 154/91 H 98 03/01/24 10:20 68 12 143/94 H 98 03/01/24 10:12 36.4 C L 83 16 144/82 H 100 03/01/24 07:57 36.7 C 84 20 127/71 99 03/01/24 07:30 36.7 C 105 H 19 150/88 H 99 O2 Del Method O2 Flow Rate 03/01/24 15:24 Room Air 03/01/24 14:26 Room Air 03/01/24 13:21 Room Air 03/01/24 12:51 Room Air 03/01/24 12:22 Room Air 03/01/24 12:00 Room Air 03/01/24 11:45 Room Air 03/01/24 11:30 Room Air 03/01/24 11:15 Room Air 03/01/24 11:00 Room Air 03/01/24 10:50 Room Air 03/01/24 10:40 Room Air 03/01/24 10:30 Room Air 03/01/24 10:20 Room Air 03/01/24 10:12 Oxymask 6 03/01/24 07:57 Room Air 03/01/24 07:30 Room Air Laboratory Results 03/01/24 05:23 03/01/24 07:47 PG Care Time/CCT Total # of Minutes Spent Total Time Spent with Patient: Total time spent is greater than 50% in coordination of care (as documented) at patient's floor/unit and/or counseling patient: Coding Level of Care Code 58341 SUB INP/OBS CARE 2/35MIN Diagnoses Hyperbilirubinemia E80.6 Nausea & vomiting R11.2 Vomiting type: unspecified Type 1 diabetes mellitus E10.9 BMI 38.0-38.9,adult Z68.38 (2) Nausea & vomiting Vomiting type: unspecified Qualified Code(s): R11.2 - Nausea with vomiting, unspecified
[2024-03-01] MEDS ORDERED: PROMETHAZINE 12.5 MG/50.5 ML BAG IV PRN (15:46)
[2024-03-01] MEDS: MoRPHine SULFATE 2 MG/ML CARP IV PRN (23:03)
[2024-03-02 06:33] LABS: Basophils # (auto) 0.04 K/uL (0.00-0.20); Basophils % (auto) 0.3 %; Eosinophils # (auto) 0.17 K/uL (0.00-0.50); Eosinophils % (auto) 1.3 %; Hematocrit (blood only) 33.1 % (37.0-47.0); Hemoglobin 10.8 g/dl (12.0-16.0); Immature Granulocytes # (auto) 0.05 K/uL (0.01-0.20); Immature Granulocytes % (auto) 0.4 %; Lymphocytes # (auto) 2.49 K/uL (1.20-3.40); Lymphocytes % (auto) 18.9 %; Mean Corpuscular Hemoglobin 28.6 pg (25.0-34.0); Mean Corpuscular Hgb Conc 32.6 g/dL (32.0-36.0); Mean Corpuscular Volume 87.6 fL (80.0-100.0); Mean Platelet Volume 9.4 fL (9.4-12.4); Monocytes # (auto) 0.81 K/uL (0.11-0.59); Monocytes % (auto) 6.1 %; Neutrophils # (auto) 9.63 K/uL (1.40-6.50); Platelet Count 341 K/uL (130-400); RDW Coefficient of Variation 12.9 % (11.5-14.5); RDW Standard Deviation 41.4 fL (36.4-46.3); Red Blood Count 3.78 M/uL (4.20-5.40); White Blood Count 13.19 K/ul (4.8-10.8)
[2024-03-02 06:49] LABS: Albumin Globulin Ratio 1.1 (0.9-2); Albumin Level 3.3 gm/dl (3.4-5.0); BUN Creatinine Ratio 5.2 (10-20); Calcium 8.6 mg/dl (8.6-10.3); Creatinine Clr Calc Pharmacy 90.4 ml/min; Est GFR (African American) 93.3 ml/min; Est GFR (Non-African American) 80.5 ml/min; Globulin 3.1 gm/dl (2.5-4.0); Potassium 3.7 mmol/L (3.5-5.1); Total Protein 6.4 gm/dl (6.0-8.3)
--- NOTE | 2024-03-02 07:30 | Surgery Progress Note ---
Date of Service March 02, 2024 Assessment & Plan (1) Hx laparoscopic cholecystectomy: Plan: POD 1 Lap Vanita expected post surgical discomfort tolerating diet , no n/v VSS LFT downtrending stable for d/c from surgical standpoint f/u op [address] Bryant Admission and Anticipated Discharge Date Admission Date: February 28, 2024 Supervising Physician Co-Signing Physician Notes Patient seen examined, labs reviewed, agree with above. POD #1 robotic cholecystectomy, had some pain from retained CO2 yesterday but this is resolved. Tolerating her meal, abdomen soft, incisions without infection. LFTs downtrending. DC to home, follow-up in 2 weeks in general surgery clinic. Wound care instructions, activity restrictions, return precautions given. Subjective pt denies n/v expected post operative discomfort Review of Systems Constitutional: no fever and no chills Respiratory: no dyspnea Gastrointestinal: no abdominal pain, no nausea and no vomiting Musculoskeletal: no muscle weakness Physical Exam Constitutional: cooperative and comfortable; no acute distress Respiratory: normal respiratory effort; no respiratory distress Cardiovascular: Rate/Rhythm: regular rate Gastrointestinal (Abdomen): Inspection/Auscultation: + abdominal surgical incision (dermabond CDI ); abdomen not distended Percussion/Palpation: abdomen soft Results & Data Vital Signs (Past 12 Hours) Vital Signs Temp Pulse Pulse Resp BP Pulse Ox O2 Del Method 03/02/24 03:05 97.7 F 72 12 119/74 97 Room Air 03/01/24 22:41 98.4 F 84 17 119/73 97 Room Air 03/01/24 19:44 98.8 F 81 18 148/82 H 98 Room Air PG Care Time/CCT Total # of Minutes Spent Total Time Spent with Patient: Total time spent is greater than 50% in coordination of care (as documented) at patient's floor/unit and/or counseling patient: Coding Level of Care Code 95827 Post Operative Follow-Up Diagnoses Hx laparoscopic cholecystectomy Z90.49
[2024-03-02] MEDS: ACETAMINOPHEN 325 MG TAB PO PRN (10:22)
--- NOTE | 2024-03-02 10:26 | Discharge Summary ---
Discharge Summary Date of Service March 02, 2024 Principal Dx & Hospital Course #1 = Principal Diagnosis (1) Hyperbilirubinemia: Patient presented to the ED on 02/27 with complaints of nausea, vomiting, jaundice. Over last 3 weeks patient has had epigastric discomfort, white/stefania colored stools, nausea, vomiting, and anorexia. Within the last 3 days prior to admission her symptoms worsened. -Reviewed US 02/27: cholelithiasis w/o sonographic evidence of acute choley. no intra or extrahepatic dilatation. -Reviewed KUB 02/27: no acute abnormality -Reviewed MRCP 02/27: cholelithiasis w/o MRI evidence of acute choley. otherwise normal MRCP. -CBC reviewed 03/02: WBC 13.19 - reactive from surgery -CMP reviewed 03/02: LFTs downtrending (AST/ALT 48/218, alk phos 149), total bilirubin downtrending 1.0, electrolytes/kidney function stable. Repeat CMP in 1 week from discharge. -GI progress note reviewed 02/28: suspect pt passed stone. Consider IOC. if concern for stone transfer to center w/ biliary capabilities. -Surgery operative report reviewed 03/01 - s/p lap choley Follow up in the surgery office two weeks from discharge -IV Zosyn administered during hospital stay. -Discharged home on oxycodone 5mg PO every 4-6 hours as needed for pain. (2) Nausea & vomiting: See plan above. (3) Type 1 diabetes mellitus: Longstanding history of type I DM which patient manages with a insulin pump and CGM Own insulin pump used in hospital. (4) BMI 38.0-38.9,adult: Wegovy held - recommend holding upon discharge until seen by PCP. Plan Chronic conditions: Hypothyroidism: Synthroid GERD: PPI Admission HPI Per Admitting Provider Dg is a 28-year-old female with a past medical history of type 1 diabetes mellitus on insulin pump, hypothyroidism on Synthroid, hypertension on losartan, and BMI 38.5 on Wegovy who presents with a bilirubin of 6.7, obstructive appearing transaminitis, and abdominal discomfort concerning for choledocholithiasis. Patient presented with nausea/vomiting and jaundice KUB is without acute abnormality Right upper quadrant ultrasound shows cholelithiasis without evidence of acute cholecystitis. No intra or extrahepatic biliary ductal dilation was seen. Case was reviewed with the ER and GI who recommended medicine evaluation and MRCP. MRCP was obtained prior to admission and showed []. Thursday epigastric pain started on her way to work. Went to work, took a pepcid. Has a history of Baretts and GERD which felt similar Threw up, and with prior GI history usually feels better after vomiting but did not feel better this time Tried to eat later in the afternoon and had turkey and cheese, kept it down for an hour then pain dramatically worsened. +emesis again. No blood/melena. Continued to have pain throughout the evening and receeded to a strong discomfort but 'not unbearable pain, was tolerable.' Triedto eat dinner but couldnt and threw up. Didn't eat all day thursday, and then tried to have zuly eapple and again got nauseus, pain returned, and vomited an hour later again. Also had some pain in both sides yesterday evening. Pain in his low mid sternum and epigastrum. THis morning tried fluids but pain returned and after drinking just 12oz of liquids felt sick again and camr to the ER. NO bowel movements since last , normally has daily BM. Has not been eating in the last few days. BMs right before her symptoms started were white and stefania colored which is not normal for her. Has had some diarrhea which just started 3 weeks ago which was much floor surfacer and stefania colored and unusual for her. Was put on immodium and sx resolved until her recent episode. No fevers, chills. Did have some sweats when her BSG dropped, is a T1 diabetic. Novolog insulin pump normally. Basal rate 2u/hour, CF 1:20, Ratio 1:8. PT strongly prefers to use her own pump if able. Is prescribed lantus as a backup but has not needed to use this and has not taken it. Patient has been on Wegovy for a little over 1 year. Seems to help her sugars a lot and feels she has had great success with this, and has not had side effects with this. No dysuria. Medical History: Reviewed Medications: Reviewed Surgical History: Reviewed Family history: Reviewed Allergies: Reviewed, NKDA Social History: REviewed. No tobacco/ETOH use. Code Status: Full Discharge Exam Constitutional WD/WN, vitals as above Respiratory normal respiratory effort, lungs clear to auscultation Cardiovascular RRR, no murmur, no edema Gastrointestinal (Abdomen) abdomen soft and not distended Skin no rashes, warm and dry Psychiatric A+Ox3, euthymic affect Discharge Plan Discharge Items Patient Disposition: Home - Self-Care Reason For Visit: N/A, TRANSAMINITIS, ? OBSTRUCTIVE BILIARY DISEASE Discharge Diagnosis: laparoscopic cholecystectomy Activity: Per Instructions section Lifting: No more than 10 pounds Bathing Comment: may shower starting 03/02/24; no soaking in tubs/pools x 2 weeks Exercise/Sports: Wait until after follow-up appointment Driving/Machine Use: no driving while taking narcotics for pain Non-emergency contact: Surgeon Call non-emergency contact if: you have any medication questions, your pain is w orsening, you have a fever, your temperature is above 101.5, your wound has increased redness, your wound has increased drainage and your wound pain has increased Follow-up/Referrals: Leroy Bryant DO, FACS [Physician] - 03/15/24 10:30 am (Please call to schedule follow up in clinic within 2 weeks) Chucho Patel DO [Primary Care Provider] - 03/07/24 12:45 pm (Please follow up within 1-2 weeks) Diet: Carb Count or DM1 Ambulatory Orders: Comprehensive Metabolic Panel (Routine) Timeframe: [id number] Location: Determined by Patient Ordered By: Deonna Blancas Attending Provider Instructions: You have skin glue over your incisions called dermabond. you may shower with this on. It will tend to dissolve and fall off within a couple weeks. Do not pick at the skin glue You may purchase Tylenol and/or Ibuprofen over the counter if needed for additional pain control over the next few days. Take per manufacturers instructions Yonny Porcelain Buildup Assistant Provider Instructions: Mrs. Wallace, You were recently hospitalized for abdominal pain, nausea, and vomiting. You had your gallbladder removed on 03/01. 1. Please see recommendations above from your surgeon 2. Please use oxycodone every 4-6 hours as needed for pain. 3. Please follow up with your surgeon in 2 weeks. 4. Please obtain repeat labs in 1 week to reassess your liver numbers. 5. Please resume outpatient medications as prescribed. Recommend holding your Wegovy injections until seen by your PCP. 6. Please follow up with your PCP within 1-2 weeks of discharge. If you develop any worsening abdominal pain, nausea, vomiting, abnormal back/shoulder pain please report to the ER for further care. Sincerely, Deonna Rehman PA-C Pending Studies at Discharge: Yes Studies:: surgical pathology Stand-Alone Forms: My [facility], Work/School Release, Smoking Cessation Medications and DC Order Prescriptions: New oxycodone 5 mg tablet 5 - 10 mg PO .[id number] PRN (Reason: pain, for initial therapy, max 6 tabs per day) Qty: 15 0RF Continued losartan 50 mg tablet 50 mg PO QAM omeprazole 40 mg capsule,delayed release(DR/EC) 40 mg PO DAILY insulin aspart U-100 [Novolog U-100 Insulin aspart] 100 unit/mL solution 150 unit continuous subcutaneous infusion UD MDD 150 UNITS PER DAY Rx Instructions: VIA INSULIN PUMP metformin 500 mg tablet extended release 24 hr 1,000 mg PO QAM insulin glargine [Lantus Solostar U-100 Insulin] 100 unit/mL (3 mL) insulin pen 30 unit SUBCUT UD PRN (Reason: PUMP FAILURE) Rx Instructions: INJECT 30 UNITS SUB-Q WITH BREAKFAST AND DINNER..USE IN CASE OF PUMP FAILURE..EACH PEN EXPIRES 28 DAYS AFTER USE levothyroxine 112 mcg tablet See Rx Instructions .ROUTE .COMPLEX Rx Instructions: TAKE 1 TABLET BY MOUTH 6 DAYS A WEEK AND 2 TABLETS ON DAY 7 ascorbic acid (vitamin C) [Vitamin C] 1,000 mg Tablet 1 g PO DAILY cholecalciferol (vitamin D3) [Vitamin D3] 25 mcg (1,000 unit) Tablet 50 mcg PO DAILY Held Wegovy 2.4 mg/0.75 mL pen injector 2.4 mg SUBCUT WK Hold Instructions: Resume on 03/16/24. until seen by PCP Rx Instructions: TAKE ON TUESDAYS Discharge Orders: Discharge Order (Routine); Ordered 03/02/24 Ordered By: Deonna Rehman Admission Data Admit Date/Time: 02/28/24 19:38 Attending Provider: Indra Najera Admit Provider: Donaldo Larry Primary Care Provider: Chucho Patel Other Providers: Donaldo Larry; Rob Esquivel; Jamal Masterson Other Interventions: Discharge Summary Assessment (RN) Last Done: 03/02/24 11:11 Hospital Stay Data Consultations 02/28/24 17:11 Consult Gastroenterology Routine ED Decision to Admit Stat 02/28/24 23:26 Consult General Surgery Routine Procedures Performed Operation Date: 03/01/24 09:50 Actual Procedures p Robotic Laparoscopic Cholecystectomy(Not Applicable) - Leroy Bryant DO, FACS Diagnostic Imagining Performed 02/28/24 14:45 US gallbladder Stat 02/28/24 16:43 MR MRCP Stat Pending Results Patient Have Any Pending Studies at Discharge: Yes Discharge Instructions Given to Patient (Per Discharging Provider) You have skin glue over your incisions called dermabond. you may shower with this on. It will tend to dissolve and fall off within a couple weeks. Do not pick at the skin glue You may purchase Tylenol and/or Ibuprofen over the counter if needed for additional pain control over the next few days. Take per manufacturers instructions Total Time Total Time Spent Total Time Spent (In Minutes): 42 Total Time Includes: Examination of the Patient, Discharge Planning and Medication Reconciliation Coding Level of Care Code 01192 INP/OBS DISCH >30 MIN Diagnoses Hyperbilirubinemia E80.6 Nausea & vomiting R11.2 Vomiting type: unspecified Type 1 diabetes mellitus E10.9 BMI 38.0-38.9,adult Z68.38
[2024-03-02 13:37] LABS: Anti Nuclear Antibody Screen NEGATIVE (NEGATIVE)
--- NOTE | 2024-03-03 06:35 | Coding Query ---
BMI To promote full compliance with coding requirements relating to patient care, physician participation is requested in all cases of inspecting machine adjuster uncertainty. Please assist us with the question(s) below: Please place an X next to the applicable diagnosis below If other, please document: BMI 38.0-38.9 was documented in this record for this patient. If the BMI is significant, please check the box that provides a more specific associated diagnosis: ( ) Overweight/Obese ( xxx) Obesity ( ) Morbid obesity ( ) Obesity Hypoventilation Syndrome (OHS) ( ) Heathy weight, not significant ( ) Underweight/Thin ( ) Other, please specify Thank you Cheryl OVALLE
[2024-03-04 15:18] LABS: Smooth Muscle Antibody POSITIVE (NEGATIVE)
[2024-03-07 08:28] LABS: Smooth Muscle Ab Titer 1:20 titer (<1:20)
== END 2024-03-02 12:19 | disposition home or self-care (01) | DRG 419 ==
LOC: SUATTDRO → ED 13:54 → 3E 19:38 → SUATTDRO 19:38 → 3E 22:58